=== PATIENT | female | born 1945 | race Two or more races ===

== ENCOUNTER → 2022-03-03 | Outpatient (CLI) | payer OTHER ==
[~2022-03-03] MED LIST: ATOR20TA50 PO; FLEC1TAB PO; LISI20TA28 PO; METF-370 PO; METO25TA93 PO
[2022-03-03 08:10] LABS: Basophils # (auto) 0 10 ^3/uL (0-0.2); Basophils % (auto) 0.8 % (0.0-2.0); Eosinophils # (auto) 0.4 10 ^3/uL (0-0.8); Eosinophils % (auto) 7.2 % (0.0-7.0); Hematocrit 33.2 % (36.0-46.0); Hemoglobin 10.7 g/dL (12.2-16.2); Lymphocytes # (auto) 1.4 10 ^3/uL (0.4-5.4); Lymphocytes % (auto) 25.6 % (10.0-50.0); Mean Corpuscular Hemoglobin 27.7 pg (28.0-32.0); Mean Corpuscular Hgb Conc. 32.3 g/dL (32.0-36.0); Mean Corpuscular Volume 85.7 fL (80.0-100.0); Monocytes # (auto) 0.5 10 ^3/uL (0-1.3); Monocytes % (auto) 8.8 % (0.0-12.0); Neutrophils # (auto) 3.2 10 ^3/uL (1.6-8.6); Neutrophils % (auto) 57.6 % (37.0-80.0); Nucleated Red Blood Cells % 0.1 %; Red Blood Cells 3.87 10^6/uL (4.0-5.20); Red Cell Distribution Width 15.4 % (11.8-14.3); White Blood Cell 5.5 10^3/uL (4.4-10.8)
[2022-03-03 08:36] LABS: Urine Bacteria NONE SEEN /hpf (None Seen); Urine Blood TRACE /uL (Negative); Urine Specific Gravity 1.011 (1.001-1.035); Urine WBC 268 /hpf (0 - 5); Urine WBC Clumps PRESENT /hpf (None Seen)
[2022-03-03 13:09] LABS: Potassium 3.9 mmol/L (3.5-5.1)
[2022-03-03 13:24] LABS: Albumin 3.5 g/dL (3.4-5.0); Bilirubin, Total 0.4 mg/dL (0.2-1.0); Calcium 9.3 mg/dL (8.5-10.1); Total Protein 7.1 g/dL (6.4-8.2)
== END | disposition home or self-care (01) ==
LOC: LAB 07:56
PROVIDERS: ATTEND Nurse Practitioner
DX: I10 Essential (primary) hypertension (principal); E78.5 Hyperlipidemia, unspecified; E11.9 Type 2 diabetes mellitus without complications
CPT/HCPCS: 36415; 80053; 80061; 81001; 82043; 84443; 85025

== ENCOUNTER → 2022-06-03 | Outpatient (CLI) | payer OTHER ==
[2022-06-03 16:02] LABS: Basophils # (auto) 0.1 10 ^3/uL (0-0.2); Basophils % (auto) 0.9 % (0.0-2.0); Eosinophils # (auto) 0.3 10 ^3/uL (0-0.8); Eosinophils % (auto) 5.3 % (0.0-7.0); Hematocrit 34.9 % (36.0-46.0); Hemoglobin 11.7 g/dL (12.2-16.2); Lymphocytes # (auto) 1.3 10 ^3/uL (0.4-5.4); Lymphocytes % (auto) 22.4 % (10.0-50.0); Mean Corpuscular Hemoglobin 28.6 pg (28.0-32.0); Mean Corpuscular Hgb Conc. 33.6 g/dL (32.0-36.0); Mean Corpuscular Volume 85.3 fL (80.0-100.0); Monocytes # (auto) 0.4 10 ^3/uL (0-1.3); Monocytes % (auto) 7.6 % (0.0-12.0); Neutrophils # (auto) 3.7 10 ^3/uL (1.6-8.6); Neutrophils % (auto) 63.8 % (37.0-80.0); Nucleated Red Blood Cells % 0.1 %; Red Cell Distribution Width 14.5 % (11.8-14.3); White Blood Cell 5.8 10^3/uL (4.4-10.8)
[2022-06-03 16:48] LABS: Calcium 9.1 mg/dL (8.5-10.1); Potassium 4.1 mmol/L (3.5-5.1)
[2022-06-03 16:52] LABS: BUN/Creatinine Ratio 18.9; Bilirubin, Total 0.4 mg/dL (0.2-1.0); Total Protein 7.2 g/dL (6.4-8.2)
[2022-06-03 17:02] LABS: Thyroid Stimulating Hormone 0.72 uIU/mL (0.358-3.74)
== END | disposition home or self-care (01) ==
LOC: LAB 15:44
PROVIDERS: ATTEND Internal Medicine
DX: I10 Essential (primary) hypertension (principal); E11.9 Type 2 diabetes mellitus without complications; D64.9 Anemia, unspecified
CPT/HCPCS: 36415; 80053; 82607; 83036; 83540; 83550; 83615; 84443; 85025

== ENCOUNTER → 2022-06-16 | Outpatient (CLI) | payer OTHER ==
[2022-06-16 13:18] LABS: Urine Bacteria NONE SEEN /hpf (None Seen); Urine Blood Negative /uL (Negative); Urine Specific Gravity 1.014 (1.001-1.035); Urine WBC 9 /hpf (0 - 5)
[2022-06-16 13:40] LABS: Albumin 3.3 g/dL (3.4-5.0); Calcium 9.2 mg/dL (8.5-10.1); Potassium 3.6 mmol/L (3.5-5.1)
[2022-06-16 13:42] LABS: Bilirubin, Total 0.5 mg/dL (0.2-1.0); Total Protein 7.1 g/dL (6.4-8.2)
[2022-06-16 13:52] LABS: Basophils # (auto) 0 10 ^3/uL (0-0.2); Basophils % (auto) 0.8 % (0.0-2.0); Eosinophils # (auto) 0.1 10 ^3/uL (0-0.8); Eosinophils % (auto) 2.7 % (0.0-7.0); Hematocrit 31.1 % (36.0-46.0); Hemoglobin 10.5 g/dL (12.2-16.2); Lymphocytes # (auto) 0.8 10 ^3/uL (0.4-5.4); Lymphocytes % (auto) 15.6 % (10.0-50.0); Mean Corpuscular Hemoglobin 28.6 pg (28.0-32.0); Mean Corpuscular Hgb Conc. 33.7 g/dL (32.0-36.0); Mean Corpuscular Volume 84.7 fL (80.0-100.0); Monocytes # (auto) 0.6 10 ^3/uL (0-1.3); Monocytes % (auto) 10.4 % (0.0-12.0); Neutrophils # (auto) 3.8 10 ^3/uL (1.6-8.6); Neutrophils % (auto) 70.5 % (37.0-80.0); Red Blood Cells 3.67 10^6/uL (4.0-5.20); Red Cell Distribution Width 14.1 % (11.8-14.3); White Blood Cell 5.4 10^3/uL (4.4-10.8)
== END | disposition home or self-care (01) ==
LOC: LAB 12:40
PROVIDERS: ATTEND Internal Medicine
DX: R68.83 Chills (without fever) (principal)
CPT/HCPCS: 36415; 80053; 81001; 85025; 87086

== ENCOUNTER → 2022-06-25 | Outpatient (CLI) | payer OTHER ==
[2022-06-25 16:59] LABS: Albumin 3.4 g/dL (3.4-5.0); Calcium 9.2 mg/dL (8.5-10.1); Potassium 4.3 mmol/L (3.5-5.1)
[2022-06-25 17:10] LABS: % Iron Saturation 22.2 % (15-50); BUN/Creatinine Ratio 20.2 (10.0-20.0); Bilirubin, Total 0.4 mg/dL (0.2-1.0); Total Protein 6.8 g/dL (6.4-8.2)
== END | disposition home or self-care (01) ==
LOC: LAB 12:29
PROVIDERS: ATTEND Internal Medicine
DX: I12.9 Hypertensive chronic kidney disease with stage 1 through stage 4 chronic kidney disease, or unspecified chronic kidney disease (principal); N18.30 Chronic kidney disease, stage 3 unspecified
CPT/HCPCS: 36415; 80053; 83540; 83550; 83615

== ENCOUNTER → 2023-01-16 | Outpatient (CLI) | payer OTHER ==
[~2023-01-16] MED LIST changes: -LISI20TA28 PO; +LISI20TA56 PO
[2023-01-16 11:22] LABS: Basophils # (auto) 0.1 10 ^3/uL (0-0.2); Basophils % (auto) 1.2 % (0.0-2.0); Eosinophils # (auto) 0.4 10 ^3/uL (0-0.8); Eosinophils % (auto) 8.2 % (0.0-7.0); Hematocrit 34.1 % (36.0-46.0); Hemoglobin 11.6 g/dL (12.2-16.2); Lymphocytes # (auto) 1.1 10 ^3/uL (0.4-5.4); Lymphocytes % (auto) 24.3 % (10.0-50.0); Mean Corpuscular Hemoglobin 29.9 pg (28.0-32.0); Mean Corpuscular Volume 87.8 fL (80.0-100.0); Monocytes # (auto) 0.4 10 ^3/uL (0-1.3); Neutrophils # (auto) 2.5 10 ^3/uL (1.6-8.6); Neutrophils % (auto) 57.3 % (37.0-80.0); Red Blood Cells 3.88 10^6/uL (4.0-5.20); White Blood Cell 4.3 10^3/uL (4.4-10.8)
[2023-01-16 11:52] LABS: Urine Bacteria NONE SEEN /hpf (None Seen); Urine Blood Negative /uL (Negative); Urine Clarity Clear (Clear); Urine Color Colorless (Yellow); Urine Protein, UAD Negative (Negative); Urine Specific Gravity 1.009 (1.001-1.035); Urine Urobilinogen Normal (Negative); Urine WBC 2 /hpf (0 - 5)
[2023-01-16 11:54] LABS: % Iron Saturation 36.2 % (15-50)
[2023-01-16 11:56] LABS: Alanine Aminotransferase 13 U/L (7-40); Albumin 4.4 g/dL (3.2-4.8); Alkaline Phosphatase 72 U/L (46-116); Anion Gap 5 (5-15); Aspartate Aminotransferase 10 U/L (13-40); BUN/Creatinine Ratio 14.7 (10.0-20.0); Blood Urea Nitrogen 15 mg/dL (9-23); Calcium 9.7 mg/dL (8.5-10.1); Carbon Dioxide 28 mmol/L (20-30); Chloride 109 mmol/L (98-107); Cholesterol 143 mg/dL (< 200); Glucose 117 mg/dL (74-106); LDL Cholesterol 66 mg/dL (< 100); Potassium 4.3 mmol/L (3.5-5.1); Sodium 142 mmol/L (136-145); Triglycerides 115 mg/dL (< 150)
[2023-01-16 11:57] LABS: Bilirubin, Total 0.6 mg/dL (0.2-1.0); HDL Cholesterol 55 mg/dL (40-59); Total Protein 7.2 g/dL (5.7-8.2)
[2023-01-16 11:58] LABS: Free T4 (Free Thyroxine) 0.86 ng/dL (0.89-1.76); Thyroid Stimulating Hormone 0.74 uIU/mL (0.55-4.78)
== END | disposition home or self-care (01) ==
LOC: LAB 10:56
PROVIDERS: ATTEND Internal Medicine
DX: I10 Essential (primary) hypertension (principal); Z86.39 Personal history of other endocrine, nutritional and metabolic disease
CPT/HCPCS: 36415; 80053; 80061; 81001; 82607; 83036; 83540; 83550; 83615; 84439; 84443; 85025

== ENCOUNTER → 2023-11-23 | Outpatient (CLI) | payer OTHER ==
[2023-11-23 14:15] LABS: Basophils # (auto) 0 10 ^3/uL (0-0.2); Eosinophils # (auto) 0.2 10 ^3/uL (0-0.8); Eosinophils % (auto) 4.8 % (0.0-7.0); Hematocrit 32.4 % (36.0-46.0); Lymphocytes % (auto) 19.6 % (10.0-50.0); Mean Corpuscular Hemoglobin 29.3 pg (28.0-32.0); Mean Corpuscular Volume 86.2 fL (80.0-100.0); Monocytes # (auto) 0.4 10 ^3/uL (0-1.3); Monocytes % (auto) 7.7 % (0.0-12.0); Neutrophils # (auto) 3.4 10 ^3/uL (1.6-8.6); Neutrophils % (auto) 66.9 % (37.0-80.0); Platelet Count (auto) 210 10^3/uL (140-450); Red Blood Cells 3.76 10^6/uL (4.0-5.20); Red Cell Distribution Width 14.3 % (11.8-14.3)
[2023-11-23 14:39] LABS: Urine Bacteria FEW /hpf (None Seen); Urine Blood Negative /uL (Negative); Urine Clarity Clear (Clear); Urine Color Light-Yellow (Yellow); Urine Protein, UAD TRACE (Negative); Urine Specific Gravity 1.016 (1.001-1.035); Urine Urobilinogen Normal (Negative); Urine WBC 2 /hpf (0 - 5); Urine pH 5.5 (5.0-9.0)
[2023-11-23 14:50] LABS: Alanine Aminotransferase 12 U/L (7-40); Albumin 4.4 g/dL (3.2-4.8); Alkaline Phosphatase 99 U/L (46-116); Anion Gap 7 (5-15); Aspartate Aminotransferase 12 U/L (13-40); BUN/Creatinine Ratio 13.2 (10.0-20.0); Bilirubin, Total 0.6 mg/dL (0.2-1.0); Blood Urea Nitrogen 19 mg/dL (9-23); Calcium 9.9 mg/dL (8.7-10.4); Carbon Dioxide 23 mmol/L (20-30); Chloride 110 mmol/L (98-107); Cholesterol 127 mg/dL (< 200); Glucose 113 mg/dL (74-106); HDL Cholesterol 49 mg/dL (40-59); LDL Cholesterol 51 mg/dL (< 100); Potassium 4.1 mmol/L (3.5-5.1); Sodium 140 mmol/L (136-145); Total Protein 7.2 g/dL (5.7-8.2); Triglycerides 118 mg/dL (< 150)
[2023-11-23 15:03] LABS: Creatinine, Urine 100.77 mg/dL (30.0-125.0)
[2023-11-23 15:14] LABS: Free T4 (Free Thyroxine) 0.96 ng/dL (0.89-1.76)
[2023-11-23 15:51] LABS: Erythrocyte Sedimentation Rate 15 mm/hr (0-20)
== END | disposition home or self-care (01) ==
LOC: LAB 13:52
PROVIDERS: ATTEND Internal Medicine
DX: I10 Essential (primary) hypertension (principal); D64.9 Anemia, unspecified
CPT/HCPCS: 36415; 80053; 80061; 81001; 82043; 82570; 82607; 83540; 84439; 84443; 85025; 85652

== ENCOUNTER 2024-01-28 14:05 | Inpatient (IN) | payer OTHER ==
[~2024-01-28] VITALS: Ht 167.6 cm; Wt 75.5 kg
[2024-01-28 14:40] LABS: Basophils # (auto) 0 10 ^3/uL (0-0.2); Basophils % (auto) 0.6 % (0.0-2.0); Eosinophils # (auto) 0.2 10 ^3/uL (0-0.8); Hematocrit 32.3 % (36.0-46.0); Lymphocytes % (auto) 17.2 % (10.0-50.0); Mean Corpuscular Hemoglobin 30.3 pg (28.0-32.0); Mean Corpuscular Hgb Conc. 33.9 g/dL (32.0-36.0); Mean Corpuscular Volume 89.1 fL (80.0-100.0); Monocytes # (auto) 0.4 10 ^3/uL (0-1.3); Monocytes % (auto) 7.5 % (0.0-12.0); Neutrophils # (auto) 4.1 10 ^3/uL (1.6-8.6); Neutrophils % (auto) 70.7 % (37.0-80.0); Platelet Count (auto) 209 10^3/uL (140-450); Red Blood Cells 3.63 10^6/uL (4.0-5.20); Red Cell Distribution Width 14.8 % (11.8-14.3); White Blood Cell 5.7 10^3/uL (4.4-10.8)
[2024-01-28 14:59] LABS: Alanine Aminotransferase 30 U/L (7-40); Albumin 4.1 g/dL (3.2-4.8); Alkaline Phosphatase 118 U/L (46-116); Anion Gap 11 (5-15); Aspartate Aminotransferase 13 U/L (13-40); Bilirubin, Total 0.4 mg/dL (0.2-1.0); Blood Urea Nitrogen 22 mg/dL (9-23); Calcium 9.6 mg/dL (8.7-10.4); Carbon Dioxide 20 mmol/L (20-31); Chloride 108 mmol/L (98-107); Glucose 313 mg/dL (74-106); Potassium 4.3 mmol/L (3.5-5.1); Sodium 139 mmol/L (136-145); Total Protein 6.8 g/dL (5.7-8.2)
[2024-01-28] MEDS: dilTIAZem 25 MG/5 ML VIAL IV ONE (15:21)
[2024-01-28] MEDS: AMIODARONE BOLUS KIT 100 ML IV ONE (16:46)
[2024-01-28] MEDS: AMIODARONE 450mg/250ml AE 250 ML IV SCH (17:11)
[2024-01-28] MEDS ORDERED: DOCUSATE SOD 100 MG CAP PO PRN (17:15)
[2024-01-28] MEDS ORDERED: NITROGLYCERIN 0.4 MG SL TAB SL PRN (17:15)
[2024-01-28] MEDS ORDERED: HYDROcodone-ACET 5/325MG TAB PO PRN (17:15)
[2024-01-28] MEDS ORDERED: DEXTROSE (50%) 50ML SYRG IV PRN (17:15)
[2024-01-28] MEDS ORDERED: ONDANSETRON HCL 4 MG/2 ML VIAL IV PRN (17:15)
[2024-01-28] MEDS ORDERED: MORPHINE SULFATE INJ 2 MG/ml SYRG IV PRN (17:15)
[2024-01-28] MEDS ORDERED: ACETAMINOPHEN 325 MG TAB PO PRN (17:15)
[2024-01-28] MEDS ORDERED: MET25T PO (17:24)
[2024-01-28] MEDS ORDERED: ASPI1TAB20 PO (17:24)
[2024-01-28] MEDS ORDERED: TRAZ-227 PO (17:24)
[2024-01-28] MEDS ORDERED: traZODone HCL 50 MG TAB PO PRN (17:30)
[2024-01-28] MEDS: InsuLIN REG 1unit/0.01ml Soln (100units/ml) SC SCH (21:47)
[2024-01-28] MEDS: ACCU-CHEK COMFORT CURVE STRIP VI SCH (21:49)
[2024-01-28 22:30] VITALS: BP 146/96; PULSE 103; RESP 20; TEMP 98; O2SAT 98
[2024-01-28] MEDS: METOPROLOL TARTRATE 25 MG TAB PO SCH (22:44)
[2024-01-28] MEDS: FLECAINIDE ACETATE 50 MG TAB PO SCH (22:44)
[2024-01-29] VITALS (8 sets, daily range): BP systolic 117–138; BP diastolic 49–93; PULSE 61–122; RESP 18–20; TEMP 97.9–98.5; O2SAT 94–98
[2024-01-29] MEDS: AMIODARONE 450mg/250ml AE 250 ML IV SCH (00:27)
[2024-01-29] MEDS ORDERED: ASCO500T11 PO (01:00)
[2024-01-29] MEDS ORDERED: CHOL400C7 PO (01:00)
[2024-01-29 06:13] LABS: Basophils # (auto) 0 10 ^3/uL (0-0.2); Basophils % (auto) 0.5 % (0.0-2.0); Eosinophils # (auto) 0.2 10 ^3/uL (0-0.8); Hematocrit 32.8 % (36.0-46.0); Hemoglobin 11.4 g/dL (12.2-16.2); Lymphocytes # (auto) 0.9 10 ^3/uL (0.4-5.4); Lymphocytes % (auto) 11.8 % (10.0-50.0); Mean Corpuscular Hemoglobin 30.6 pg (28.0-32.0); Mean Corpuscular Hgb Conc. 34.9 g/dL (32.0-36.0); Mean Corpuscular Volume 87.5 fL (80.0-100.0); Monocytes # (auto) 0.5 10 ^3/uL (0-1.3); Monocytes % (auto) 7.2 % (0.0-12.0); Neutrophils # (auto) 5.8 10 ^3/uL (1.6-8.6); Neutrophils % (auto) 78.5 % (37.0-80.0); Nucleated Red Blood Cells % 0.1 %; Platelet Count (auto) 215 10^3/uL (140-450); Red Blood Cells 3.75 10^6/uL (4.0-5.20); Red Cell Distribution Width 14.3 % (11.8-14.3); White Blood Cell 7.4 10^3/uL (4.4-10.8)
[2024-01-29] MEDS: InsuLIN REG 1unit/0.01ml Soln (100units/ml) SC SCH (06:27)
[2024-01-29 07:38] LABS: Alanine Aminotransferase 25 U/L (7-40); Alkaline Phosphatase 114 U/L (46-116); Anion Gap 12 (5-15); Aspartate Aminotransferase 11 U/L (13-40); BUN/Creatinine Ratio 12.3 (10.0-20.0); Bilirubin, Total 0.6 mg/dL (0.2-1.0); Blood Urea Nitrogen 23 mg/dL (9-23); Calcium 9.5 mg/dL (8.7-10.4); Carbon Dioxide 20 mmol/L (20-31); Chloride 108 mmol/L (98-107); Glucose 173 mg/dL (74-106); Potassium 4.2 mmol/L (3.5-5.1); Sodium 140 mmol/L (136-145); Total Protein 6.7 g/dL (5.7-8.2)
[2024-01-29 08:06] LABS: INR 1.11 (0.9-1.15); Partial Thromboplastin Time 25.9 SEC (24.5-34.5); Prothrombin Time 11.7 sec (9.3-11.8)
[2024-01-29 09:22] LABS: Magnesium 1.7 mg/dL (1.6-2.6)
[2024-01-29 09:23] LABS: Phosphorus 3.9 mg/dL (2.4-5.1)
[2024-01-29] MEDS: ASPirin-EC 81 mg tab PO SCH (10:36)
[2024-01-29] MEDS: LISINOPRIL 20 MG TAB PO SCH (10:37)
[2024-01-29 11:52] LABS: Urine Bacteria None Seen /hpf (None Seen)
[2024-01-29 12:13] LABS: Amphetamine Screen, Urine Neg (NEGATIVE); Barbiturate Scree,Urine Neg (NEGATIVE); Benzodiazephine Screen, Urine Neg (NEGATIVE); Cannabinoid Screen, Urine Neg (NEGATIVE); Cocaine Screen, Urine Neg (NEGATIVE); Opiate Scree,Urine Neg (NEGATIVE); Phencyclidine Screen, Urine Neg (NEGATIVE)
[2024-01-29 12:39] LABS: Urine Blood Negative /uL (Negative); Urine Clarity Clear (Clear); Urine Color Light-Yellow (Yellow); Urine Protein, UAD TRACE (Negative); Urine Specific Gravity 1.019 (1.001-1.035); Urine Urobilinogen Normal (Negative)
[2024-01-29] MEDS: MAGNESIUM SULFATE 1GM/100ML 100 ML IV ONE (12:54)
[2024-01-29 13:27] LABS: Urine WBC 10 /hpf (0 - 5)
[2024-01-29] MEDS: APIXABAN 2.5 MG TAB PO SCH (21:18)
[2024-01-29] MEDS: ATORVASTATIN 20 MG TAB PO SCH (21:18)
[2024-01-30] VITALS (8 sets, daily range): BP systolic 113–133; BP diastolic 77–92; PULSE 106–131; RESP 14–18; TEMP 97.5–98.7; O2SAT 90–97
[2024-01-30 05:52] LABS: Basophils # (auto) 0 10 ^3/uL (0-0.2); Basophils % (auto) 0.7 % (0.0-2.0); Eosinophils # (auto) 0.2 10 ^3/uL (0-0.8); Hematocrit 33.9 % (36.0-46.0); Hemoglobin 11.4 g/dL (12.2-16.2); Lymphocytes # (auto) 1.4 10 ^3/uL (0.4-5.4); Lymphocytes % (auto) 21.1 % (10.0-50.0); Mean Corpuscular Hemoglobin 29.7 pg (28.0-32.0); Mean Corpuscular Hgb Conc. 33.7 g/dL (32.0-36.0); Mean Corpuscular Volume 88.2 fL (80.0-100.0); Monocytes # (auto) 0.7 10 ^3/uL (0-1.3); Monocytes % (auto) 11.4 % (0.0-12.0); Neutrophils # (auto) 4.1 10 ^3/uL (1.6-8.6); Neutrophils % (auto) 63.8 % (37.0-80.0); Nucleated Red Blood Cells % 0.1 %; Platelet Count (auto) 209 10^3/uL (140-450); Red Blood Cells 3.84 10^6/uL (4.0-5.20); Red Cell Distribution Width 14.6 % (11.8-14.3); White Blood Cell 6.4 10^3/uL (4.4-10.8)
[2024-01-30 06:00] LABS: Anion Gap 9 (5-15); Calcium 9.5 mg/dL (8.7-10.4); Carbon Dioxide 21 mmol/L (20-31); Chloride 109 mmol/L (98-107); Sodium 139 mmol/L (136-145)
[2024-01-30 06:06] LABS: BUN/Creatinine Ratio 11.4 (10.0-20.0); Blood Urea Nitrogen 20 mg/dL (9-23); Glucose 101 mg/dL (74-106)
[2024-01-30] MEDS: SPIRONOLACTONE 25 MG TAB PO ONE (17:36)
[2024-01-30] MEDS: METOPROLOL TARTRATE 25 MG TAB PO SCH (21:45)
[2024-01-30] MEDS ORDERED: METOPROLOL TARTRATE 25 MG TAB PO SCH (22:00)
[2024-01-30] MEDS: DOCUSATE CALCIUM 240 MG CAP PO ONE (22:08)
[2024-01-30] MEDS: traZODone HCL 50 MG TAB PO SCH (22:10)
[2024-01-30] MEDS: ATORVASTATIN 20 MG TAB PO SCH (22:19)
[2024-01-31] VITALS (8 sets, daily range): BP systolic 94–124; BP diastolic 54–77; PULSE 109–137; RESP 16–20; TEMP 97.3–98.1; O2SAT 94–100
[2024-01-31] MEDS: EMPAGLIFLOZIN 10 MG TAB PO SCH (09:07)
[2024-01-31] MEDS: LACTULOSE 20Gm/30ML SOLN PO SCH (09:35)
[2024-01-31] MEDS: SPIRONOLACTONE 25 MG TAB PO SCH (11:41)
[2024-02-01] VITALS (8 sets, daily range): BP systolic 90–149; BP diastolic 58–73; PULSE 61–135; RESP 16–18; TEMP 97.4–98.2; O2SAT 95–100
[2024-02-01 07:03] LABS: Basophils # (auto) 0.1 10 ^3/uL (0-0.2); Basophils % (auto) 1.1 % (0.0-2.0); Eosinophils # (auto) 0.3 10 ^3/uL (0-0.8); Eosinophils % (auto) 6.5 % (0.0-7.0); Hemoglobin 10.6 g/dL (12.2-16.2); Lymphocytes # (auto) 1.3 10 ^3/uL (0.4-5.4); Lymphocytes % (auto) 23.3 % (10.0-50.0); Mean Corpuscular Hemoglobin 30.2 pg (28.0-32.0); Mean Corpuscular Hgb Conc. 34.2 g/dL (32.0-36.0); Mean Corpuscular Volume 88.2 fL (80.0-100.0); Monocytes # (auto) 0.6 10 ^3/uL (0-1.3); Neutrophils # (auto) 3.1 10 ^3/uL (1.6-8.6); Neutrophils % (auto) 57.1 % (37.0-80.0); Nucleated Red Blood Cells % 0.1 %; Platelet Count (auto) 208 10^3/uL (140-450); Red Blood Cells 3.51 10^6/uL (4.0-5.20); White Blood Cell 5.4 10^3/uL (4.4-10.8)
[2024-02-01 07:08] LABS: Chloride 110 mmol/L (98-107); Potassium 4.5 mmol/L (3.5-5.1); Sodium 142 mmol/L (136-145)
[2024-02-01 07:09] LABS: Anion Gap 8 (5-15); Carbon Dioxide 24 mmol/L (20-31)
[2024-02-01 07:14] LABS: BUN/Creatinine Ratio 12.1 (10.0-20.0); Blood Urea Nitrogen 28 mg/dL (9-23); Glucose 87 mg/dL (74-106)
[2024-02-01] MEDS: METOPROLOL SUCCINATE XL 50 MG TAB PO SCH (09:55)
[2024-02-01] MEDS: hydrALAZINE HCL 10 MG TAB PO SCH (14:08)
[2024-02-01] MEDS ORDERED: ADENOSINE 63 MG in GIVE UN-DILUTED 0 ML IV STA (14:19)
[2024-02-01] MEDS: AMIODARONE 450mg/250ml AE 250 ML IV SCH ×2 (16:15→23:21)
[2024-02-01] MEDS: AMIODARONE BOLUS KIT 100 ML IV ONE (16:20)
[2024-02-01] MEDS: ISOSORBIDE DINITRATE 10 MG TAB PO SCH (18:06)
[2024-02-01] MEDS ORDERED: SACUBITRIL-VALSARTAN 24mg/26mg TAB PO SCH (22:00)
[2024-02-02] VITALS (9 sets, daily range): BP systolic 102–128; BP diastolic 64–73; PULSE 75–125; RESP 17–20; TEMP 97.4–98.3; O2SAT 95–98
[2024-02-02 09:26] LABS: Chloride 106 mmol/L (98-107); Potassium 4.3 mmol/L (3.5-5.1); Sodium 138 mmol/L (136-145)
[2024-02-02 09:27] LABS: Anion Gap 7 (5-15); Calcium 9.8 mg/dL (8.7-10.4); Carbon Dioxide 25 mmol/L (20-31)
[2024-02-02 09:32] LABS: BUN/Creatinine Ratio 13.3 (10.0-20.0); Blood Urea Nitrogen 28 mg/dL (9-23); Glucose 159 mg/dL (74-106)
[2024-02-02] MEDS: AMIODARONE HCL 200 MG TAB PO SCH (11:14)
[2024-02-02] MEDS: ADENOSINE 61 MG in GIVE UN-DILUTED 0 ML IV STA (14:23)
[2024-02-02] MEDS ORDERED: EMPA1TAB PO (16:41)
[2024-02-02] MEDS ORDERED: ISOS5TAB PO (16:41)
[2024-02-02] MEDS ORDERED: AMIO200T33 PO (16:41)
[2024-02-02] MEDS ORDERED: HYDR-5139 PO (16:41)
[2024-02-02] MEDS ORDERED: METO1TAB9 PO (16:41)
== END 2024-02-02 23:25 | disposition home or self-care (01) | DRG 291 ==
LOC: ER 14:05 → TELE 17:12 → TELE-WESTW 22:08
PROVIDERS: ADMIT Internal Medicine; ATTEND Internal Medicine
DX: I13.0 Hypertensive heart and chronic kidney disease with heart failure and stage 1 through stage 4 chronic kidney disease, or unspecified chronic kidney disease (principal); I50.23 Acute on chronic systolic (congestive) heart failure; J96.01 Acute respiratory failure with hypoxia; I48.20 Chronic atrial fibrillation, unspecified; J84.9 Interstitial pulmonary disease, unspecified; N17.9 Acute kidney failure, unspecified; I42.9 Cardiomyopathy, unspecified; E11.22 Type 2 diabetes mellitus with diabetic chronic kidney disease; E78.5 Hyperlipidemia, unspecified; E11.65 Type 2 diabetes mellitus with hyperglycemia; E03.9 Hypothyroidism, unspecified; Z96.641 Presence of right artificial hip joint; N18.30 Chronic kidney disease, stage 3 unspecified; K59.00 Constipation, unspecified; G47.00 Insomnia, unspecified; Z90.710 Acquired absence of both cervix and uterus; Z83.3 Family history of diabetes mellitus; Z87.891 Personal history of nicotine dependence; Z82.5 Family history of asthma and other chronic lower respiratory diseases
CPT/HCPCS: 36415; 71045; 78452; 80048; 80053; 80061; 80307; 81001; 82306; 82607; 82962; 83036; 83605; 83735; 84100; 84443; 84484; 85025; 85610; 85730; 93005; 93017; 93306; 96365; 96372; 99291; G0378; J0153; J1815

== ENCOUNTER → 2024-02-16 | Outpatient (CLI) | payer OTHER ==
[~2024-02-16] MED LIST changes: +AMIO200T33 PO; +ASCO500T11 PO; +ASPI1TAB20 PO; +EMPA1TAB PO; -FLEC1TAB PO; +HYDR-5139 PO; +ISOS5TAB PO; -LISI20TA56 PO; -METF-370 PO; +METO1TAB9 PO; -METO25TA93 PO; +TRAZ-227 PO
[2024-02-16 13:24] LABS: Basophils # (auto) 0.1 10 ^3/uL (0-0.2); Basophils % (auto) 1.2 % (0.0-2.0); Eosinophils # (auto) 0.2 10 ^3/uL (0-0.8); Eosinophils % (auto) 3.7 % (0.0-7.0); Hematocrit 36.7 % (36.0-46.0); Hemoglobin 12.4 g/dL (12.2-16.2); Lymphocytes % (auto) 20.3 % (10.0-50.0); Mean Corpuscular Hemoglobin 29.9 pg (28.0-32.0); Mean Corpuscular Hgb Conc. 33.7 g/dL (32.0-36.0); Mean Corpuscular Volume 88.7 fL (80.0-100.0); Monocytes # (auto) 0.5 10 ^3/uL (0-1.3); Monocytes % (auto) 9.7 % (0.0-12.0); Neutrophils # (auto) 3.4 10 ^3/uL (1.6-8.6); Neutrophils % (auto) 65.1 % (37.0-80.0); Nucleated Red Blood Cells % 0.1 %; Platelet Count (auto) 239 10^3/uL (140-450); Red Blood Cells 4.14 10^6/uL (4.0-5.20); Red Cell Distribution Width 14.9 % (11.8-14.3); White Blood Cell 5.2 10^3/uL (4.4-10.8)
[2024-02-16 14:00] LABS: Alanine Aminotransferase 28 U/L (7-40); Albumin 4.6 g/dL (3.2-4.8); Alkaline Phosphatase 108 U/L (46-116); Anion Gap 5 (5-15); Aspartate Aminotransferase 11 U/L (13-40); Bilirubin, Total 0.5 mg/dL (0.2-1.0); Blood Urea Nitrogen 27 mg/dL (9-23); Calcium 10.1 mg/dL (8.7-10.4); Carbon Dioxide 27 mmol/L (20-31); Chloride 108 mmol/L (98-107); Glucose 114 mg/dL (74-106); Potassium 4.7 mmol/L (3.5-5.1); Sodium 140 mmol/L (136-145); Total Protein 7.6 g/dL (5.7-8.2)
[2024-02-16 14:48] LABS: Uric Acid 5.9 mg/dL (3.1-7.8)
== END | disposition home or self-care (01) ==
LOC: LAB 12:44
PROVIDERS: ATTEND Student in an Organized Health Care Education/Training Program
DX: I13.0 Hypertensive heart and chronic kidney disease with heart failure and stage 1 through stage 4 chronic kidney disease, or unspecified chronic kidney disease (principal); N18.31 Chronic kidney disease, stage 3a; I50.9 Heart failure, unspecified; E11.22 Type 2 diabetes mellitus with diabetic chronic kidney disease
CPT/HCPCS: 36415; 80053; 80184; 83540; 83970; 84439; 84550; 85025

== ENCOUNTER → 2024-05-30 | Outpatient (CLI) | payer OTHER ==
[2024-05-30 12:14] LABS: Free T3 4.24 pg/mL (2.3-4.2); Free T4 (Free Thyroxine) 1.45 ng/dL (0.89-1.76)
[2024-05-31 08:07] LABS: Thyroid Peroxidase (TPO) Ab 552 IU/mL (0-34)
[2024-05-31 11:07] LABS: Thyrotropin Receptor Antibody <1.10 IU/L (0.00-1.75)
== END | disposition home or self-care (01) ==
LOC: LAB 11:25
PROVIDERS: ATTEND Internal Medicine
DX: E05.90 Thyrotoxicosis, unspecified without thyrotoxic crisis or storm (principal)
CPT/HCPCS: 36415; 84439; 84443; 84481; 86376

== ENCOUNTER → 2024-07-14 | Outpatient (CLI) | payer OTHER ==
[2024-07-14 12:39] LABS: Erythrocyte Sedimentation Rate 13 mm/hr (0-20)
== END | disposition home or self-care (01) ==
LOC: LAB 11:33
PROVIDERS: ATTEND Internal Medicine Endocrinology, Diabetes & Metabolism
DX: E05.90 Thyrotoxicosis, unspecified without thyrotoxic crisis or storm (principal)
CPT/HCPCS: 36415; 84439; 84443; 84445; 85652; 86141

== ENCOUNTER 2024-12-16 15:55 | Outpatient (CLI) | payer OTHER ==
[2024-12-16 16:13] LABS: Hematocrit 34.5 % (36.0-46.0); Hemoglobin 11.9 g/dL (12.2-16.2); Mean Corpuscular Hemoglobin 29.7 pg (28.0-32.0); Mean Corpuscular Volume 86.3 fL (80.0-100.0); Nucleated Red Blood Cells % 0.1 %
[2024-12-16 16:36] LABS: Alanine Aminotransferase 14 U/L (7-40); Albumin 4.1 g/dL (3.2-4.8); Alkaline Phosphatase 75 U/L (46-116); Anion Gap 8 (5-15); BUN/Creatinine Ratio 14.8 (10.0-20.0); Bilirubin, Total 0.6 mg/dL (0.2-1.0); Calcium 9.4 mg/dL (8.7-10.4); Carbon Dioxide 25 mmol/L (20-31); Chloride 107 mmol/L (98-107); Sodium 140 mmol/L (136-145); Total Protein 6.8 g/dL (5.7-8.2)
[2024-12-16 16:37] LABS: Blood Urea Nitrogen 33 mg/dL (9-23); Glucose 141 mg/dL (74-106); Potassium 5.2 mmol/L (3.5-5.1)
== END 2024-12-16 17:00 | disposition home or self-care (01) ==
LOC: LAB 15:55
PROVIDERS: ATTEND Internal Medicine
DX: E11.42 Type 2 diabetes mellitus with diabetic polyneuropathy (principal); I10 Essential (primary) hypertension; E78.5 Hyperlipidemia, unspecified; R19.7 Diarrhea, unspecified
CPT/HCPCS: 36415; 80053; 84439; 84443; 85025; 85652; 86141

== ENCOUNTER 2024-12-28 10:34 | Outpatient (CLI) | payer OTHER ==
[2024-12-28 11:15] LABS: Calcium 8.8 mg/dL (8.7-10.4); Potassium 4.1 mmol/L (3.5-5.1); Sodium 144 mmol/L (136-145)
[2024-12-28 11:16] LABS: Anion Gap 9 (5-15); Carbon Dioxide 25 mmol/L (20-31)
[2024-12-28 11:21] LABS: BUN/Creatinine Ratio 16.8 (10.0-20.0)
[2024-12-28 11:22] LABS: Blood Urea Nitrogen 26 mg/dL (9-23); Chloride 110 mmol/L (98-107); Glucose 120 mg/dL (74-106)
== END 2024-12-28 17:00 | disposition home or self-care (01) ==
LOC: LAB 10:34
PROVIDERS: ATTEND Internal Medicine
DX: N18.4 Chronic kidney disease, stage 4 (severe) (principal)
CPT/HCPCS: 36415; 80048

== ENCOUNTER 2025-02-05 04:54 | Emergency (ER) | payer OTHER ==
[~2025-02-05] VITALS: Ht 167.6 cm; Wt 59.7 kg
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
[2025-02-05 06:59] VITALS: BP 180/65; PULSE 63; RESP 18; TEMP 98; O2SAT 98
--- NOTE | 2025-02-06 11:53 | ECG ---
[facility] Test Date: 2025-02-05 Test Time: 05:06:21 Pat Name: RADHA CHACON Department: Room: Gender: F Distribution Associate: : 1945 Requested By: EMERGENCY EMERGENCY Order Number: [id number] Reading MD: Kaiser Macias Measurements Intervals [place] Rate: 64 P: 64 WI: 168 QRS: 72 QRSD: 91 T: 68 QT: 402 QTc: 415 Interpretive Statements Sinus rhythm Atrial premature complexes Electronically Signed On 02-07-2025 13:32:13 PST by Kaiser Macias Please click the below link to view image of tracing.
== END 2025-02-05 08:00 | disposition home or self-care (01) ==
LOC: ER 04:54
DX: I12.9 Hypertensive chronic kidney disease with stage 1 through stage 4 chronic kidney disease, or unspecified chronic kidney disease (principal); E11.22 Type 2 diabetes mellitus with diabetic chronic kidney disease; N18.9 Chronic kidney disease, unspecified; F10.90 Alcohol use, unspecified, uncomplicated; E78.5 Hyperlipidemia, unspecified; I48.91 Unspecified atrial fibrillation; Z79.899 Other long term (current) drug therapy; Z90.710 Acquired absence of both cervix and uterus; Z79.82 Long term (current) use of aspirin; Z79.84 Long term (current) use of oral hypoglycemic drugs
CPT/HCPCS: 93005

== ENCOUNTER 2025-02-06 11:56 | Outpatient (CLI) | payer OTHER ==
[2025-02-06 13:32] LABS: Hematocrit 32.8 % (36.0-46.0); Hemoglobin 11.2 g/dL (12.2-16.2); Mean Corpuscular Hemoglobin 30.0 pg (28.0-32.0); Mean Corpuscular Volume 87.8 fL (80.0-100.0); Nucleated Red Blood Cells % 0.0 %
[2025-02-06 13:56] LABS: Alanine Aminotransferase 19 U/L (7-40); Alkaline Phosphatase 105 U/L (46-116); Anion Gap 10 (5-15); Calcium 9.4 mg/dL (8.7-10.4); Carbon Dioxide 24 mmol/L (20-31); Potassium 4.4 mmol/L (3.5-5.1); Sodium 142 mmol/L (136-145)
[2025-02-06 13:57] LABS: BUN/Creatinine Ratio 17.5 (10.0-20.0); Triglycerides 110 mg/dL (< 150)
[2025-02-06 13:58] LABS: Blood Urea Nitrogen 24 mg/dL (9-23); Chloride 108 mmol/L (98-107); Glucose 109 mg/dL (74-106); Protein, Urine 11.5 mg/dL (1-14); Total Protein 7.2 g/dL (5.7-8.2)
[2025-02-06 13:59] LABS: Albumin 4.3 g/dL (3.2-4.8); Cholesterol 137 mg/dL (< 200); HDL Cholesterol 53 mg/dL (40-59)
[2025-02-06 14:00] LABS: Bilirubin, Total 0.7 mg/dL (0.2-1.0)
[2025-02-06 14:03] LABS: Free T4 (Free Thyroxine) 1.01 ng/dL (0.89-1.76); Urine Protein, UAD Negative (Negative)
== END 2025-02-06 17:00 | disposition home or self-care (01) ==
LOC: LAB 11:56
PROVIDERS: ATTEND Internal Medicine
DX: I12.9 Hypertensive chronic kidney disease with stage 1 through stage 4 chronic kidney disease, or unspecified chronic kidney disease (principal); E11.22 Type 2 diabetes mellitus with diabetic chronic kidney disease; N18.30 Chronic kidney disease, stage 3 unspecified
CPT/HCPCS: 36415; 80053; 80061; 81001; 82043; 82570; 82607; 83036; 83970; 84156; 84439; 84443; 85025; 85652

== ENCOUNTER 2025-02-19 09:36 | Inpatient (IN) | payer OTHER ==
[2025-02-19] VITALS (7 sets, daily range): BP systolic 116–156; BP diastolic 59–86; PULSE 78–111; RESP 16–19; TEMP 98–98.3; O2SAT 96–100
[~2025-02-19] VITALS: Ht 167.6 cm; Wt 59.7 kg
[2025-02-19 10:26] LABS: Hematocrit 36.4 % (36.0-46.0); Hemoglobin 12.2 g/dL (12.2-16.2); Mean Corpuscular Hemoglobin 29.6 pg (28.0-32.0); Mean Corpuscular Volume 88.1 fL (80.0-100.0); Nucleated Red Blood Cells % 0.0 %
[2025-02-19 10:37] LABS: Potassium 4.1 mmol/L (3.5-5.1); Sodium 144 mmol/L (136-145)
[2025-02-19 10:38] LABS: Anion Gap 11 (5-15); Carbon Dioxide 25 mmol/L (20-31)
[2025-02-19 10:39] LABS: Calcium 9.7 mg/dL (8.7-10.4)
[2025-02-19 10:44] LABS: BUN/Creatinine Ratio 10.8 (10.0-20.0); Blood Urea Nitrogen 15 mg/dL (9-23)
[2025-02-19 10:48] LABS: Chloride 108 mmol/L (98-107); Glucose 120 mg/dL (74-106)
--- NOTE | 2025-02-19 11:04 | ED.PDOC ---
History of Present Illness HPI Comments 79-year-old female presents to the ER with prior medical history of AFib, CKF , diabetes, high lipids, hypertension: Surgical history of hysterectomy in the chief complaint of hypotension. Patient reports on taking her blood pressure this morning at home, for which the patient had a with a pressure of 172/96, and felt off, and had nausea, palpitations, and "shakiness". Patient immediately came to the ER for which had a blood pressure of 155/79. Patient notes on having similar symptoms in the past Denies any other symptoms at this time. Denies chills, fever, /V/D, SOB, CP. No other associated symptoms, modifiers, recent injuries or sick contacts present at this time. Chief Complaint: High Blood Pressure Time Seen by MD: 10:30 Primary Care Provider: BELINDA Reviewed Notes: Nurses Notes, Medications, Allergies Allergies: Coded Allergies: NO KNOWN ALLERGIES (Unverified , 11/05/21) Home Meds Active Scripts Metoprolol Succinate (Metoprolol Succinate Er) 100 Mg Tab, 100 MG PO BID for 30 Days, #60 TAB Prov:RUSTAM PEARSON RESIDENT 02/02/24 Empagliflozin (Jardiance) 10 Mg Tab, 10 MG PO DAILY for 30 Days, #30 TAB Prov:RUSTAM PEARSON RESIDENT 02/02/24 Isosorbide Dinitrate (Isosorbide Dinitrate) 5 Mg Tab, 5 MG PO TID for 30 Days, #90 TAB Prov:RUSTAM PEARSON RESIDENT 02/02/24 Hydralazine HCl (Hydralazine Hydrochloride) 10 Mg Tab, 10 MG PO Q8HR for 30 Days, #90 TAB Prov:RUSTAM PEARSON RESIDENT 02/02/24 Amiodarone Hcl (Amiodarone Hcl) 200 Mg Tab, 200 MG PO BID for 30 Days, #60 TAB Prov:RUSTAM PEARSON RESIDENT 02/02/24 Reported Medications Ascorbic Acid (VITAMIN C TABLET) 500 Mg Tb, 1 TAB PO DAILY, #30 TAB 3 Refills 01/29/24 Trazodone Hcl (Trazodone Hcl) 50 Mg Tab, 1 TAB PO HSPRN PRN 01/28/24 Aspirin (Aspir-81) 81 Mg Tab, 1 TAB PO DAILY, #30 TAB 5 Refills 01/28/24 Atorvastatin Calcium (ATORVASTATIN CALCIUM) 20 Mg Tab, 1 TAB PO DAILY, #30 TAB 5 Refills 11/07/21 Information Source: Patient Mode of Arrival: Ambulatory Severity: Moderate Timing: Minutes Duration: Since onset, Minutes Prehospital treatment: None Past Medical History PAST MEDICAL HISTORY: AFIB, CKF, DM, High Lipids, HTN Surgical History: Hysterectomy SPA RECEPTIONIST History: No Pertinent SPA RECEPTIONIST History Family History Family History: Reviewed,noncontributory to illness, Unknown Social History Smoker: Unknown Alcohol: Unknown Drugs: Unknown Lives In: Home Constitutional: denies: chills, diaphoresis, fatigue, fever, malaise, sweats, weakness, others EENTM: denies: blurred vision, double vision, ear bleeding, ear discharge, ear drainage, ear pain, ear ringing, eye pain, eye redness, hearing loss, mouth pain, mouth swelling, nasal discharge, nose bleeding, nose congestion, nose pain, photophobia, tearing, throat pain, throat swelling, voice changes, others Respiratory: denies: cough, hemoptysis, orthopnea, SOB at rest, shortness of breath, SOB with excertion, stridor, wheezing, others Cardiovascular: reports: palpitations, others (Hypertension); denies: chest pain, dizzy spells, diaphoresis, Dyspnea on exertion, edema, irregular heart beat, left arm pain, lightheadedness, PND, syncope Gastrointestinal: reports: nausea; denies: abdomen distended, abdominal pain, blood streaked bowels, constipated, diarrhea, dysphagia, difficulty swallowing, hematemesis, melena, poor appetite, poor fluid intake, rectal bleeding, rectal pain, vomiting, others Genitourinary: denies: abnormal vagina bleeding, burning, dyspareunia, dysuria, flank pain, frequency, hematuria, incontinence, pain, , vagina discharge, urgency, others Neurological: denies: dizziness, fainting, headache, left sided numbness, left sided weakness, numbness, paresthesia, pre-existing deficit, right sided numbness, right sided weakness, seizure, speech problems, tingling, tremors, weakness, others Musculoskeletal: denies: back pain, gout, joint pain, joint swelling, muscle pain, muscle stiffness, neck pain, others Integumetry: denies: bruises, change in color, change in hair/nails, dryness, laceration, lesions, lumps, rash, wounds, others Allergic/Immunocompromised: denies: Difficulty Healing, Frequent Infections, Hives, Itching, others Hematologic/Lymphatic: denies: anemia, blood clots, easy bleeding, easy bruising, swollen glands, others Endocrine: denies: excessive hunger, excessive sweating, excessive thirst, excessive urination, flushing, intolerance to cold, intolerance to heat, unexplained weight gain, unexplained weight loss, others Psychiatric: denies: anxiety, bipolar disorder, depression, hopeless, panic disorder, schizophrenia, sleepless, suicidal, others All Other Systems: Reviewed and Negative Physical Exam General Appearance: No Apparent Distress, Normal HEENT: Normal ENT Inspection, Pharynx Normal, TMs Normal Neck: Full Range of Motion, Non-Tender, Normal, Normal Inspection Respiratory: Chest Non-Tender, Lungs Clear, No Accessory Muscle Use, No Respiratory Distress, Normal Breath Sounds Cardiovascular: No Edema, No JVD, No Murmur, No Gallop, Normal Peripheral Pulses, Regular Rate/Rhythm Breast Exam: Deferred Gastrointestinal: No Organomegaly, Non Tender, No Pulsatile Mass, Normal Bowel Sounds, Soft Genitalia: Deferred Pelvic: Deferred Rectal: Deferred Extremities: No calf tenderness, Normal capillary refill, Normal inspection, Normal range of motion, Non-tender, No pedal edema Musculoskeletal : Apperance: Normal Neurologic: Alert, residential roofer helper II-XII nml as Tested, No Motor Deficits, Normal Affect, Normal Mood, No Sensory Deficits Cerebellar Function: Normal Reflexes: Normal Skin: Dry, Normal Color, Warm Lymphatic: No Adenopathy Was a procedure done? Was a procedure done?: No Differential Dx Considerations may include: See MDM X-Ray, Labs, Meds, VS Vital Signs Date Time Temp Pulse Resp B/P (MAP) Pulse Ox O2 Delivery O2 Flow Rate FiO2 02/19/25 12:17 98.1 74 16 163/97 (119) 100 98.1 02/19/25 11:06 72 02/19/25 09:40 97.6 89 16 155/79 99 97.6 Lab Test 02/19/25 11:57 02/19/25 11:17 02/19/25 10:05 Range/Units Urine Color Light-yellow Yellow Urine Clarity Clear Clear Urine pH 6.5 5.0-9.0 Urine Specific [place] 1.009 1.001-1.035 Urine Protein Trace H Negative Urine Ketones Negative Negative Urine Blood Negative Negative /uL Urine Nitrite Negative Negative Urine Bilirubin Negative Negative Urine Urobilinogen Normal Negative mg/dL Urine Leukocyte Esterase Negative Negative /uL Urine RBC <1 0 - 4 /hpf Urine Microscopic WBC 1 0-5 /HPF Urine Squamous Epithelial Cells Few <5 /hpf Urine Bacteria None seen None Seen /hpf Urine Glucose Normal Normal mg/dL Troponin I High Sensitivity 7 8 </=34 ng/L White Blood Count 4.8 4.4-10.8 10^3/uL Red Blood Count 4.13 4.0-5.20 10^6/uL Hemoglobin 12.2 12.2-16.2 g/dL Hematocrit 36.4 36.0-46.0 % Mean Corpuscular Volume 88.1 80.0-100.0 fL Mean Corpuscular Hemoglobin 29.6 28.0-32.0 pg Mean Corpuscular Hemoglobin Concent 33.5 32.0-36.0 g/dL Red Cell Distribution Width 14.4 H 11.8-14.3 % Platelet Count 214 140-450 10^3/uL Mean Platelet Volume 7.8 6.9-10.8 fL Neutrophils (%) (Auto) 55.8 37.0-80.0 % Lymphocytes (%) (Auto) 28.8 10.0-50.0 % Monocytes (%) (Auto) 8.2 0.0-12.0 % Eosinophils (%) (Auto) 6.5 0.0-7.0 % Basophils (%) (Auto) 0.7 0.0-2.0 % Neutrophils # (Auto) 2.6 1.6-8.6 10 ^3/uL Lymphocytes # (Auto) 1.4 0.4-5.4 10 ^3/uL Monocytes # (Auto) 0.4 0-1.3 10 ^3/uL Eosinophils # (Auto) 0.3 0-0.8 10 ^3/uL Basophils # (Auto) 0 0-0.2 10 ^3/uL Nucleated Red Blood Cells 0.0 % Sodium Level 144 136-145 mmol/L Potassium Level 4.1 3.5-5.1 mmol/L Chloride Level 108 H 98-107 mmol/L Carbon Dioxide Level 25 20-31 mmol/L Anion Gap 11 5-15 Blood Urea Nitrogen 15 9-23 mg/dL Creatinine 1.39 H 0.550-1.02 mg/dL Glomerular Filtration Rate Calc 38 >90 mL/min BUN/Creatinine Ratio 10.8 10.0-20.0 Serum Glucose 120 H 74-106 mg/dL Calcium Level 9.7 8.7-10.4 mg/dL Time of 1ST Reevaluation: 11:00 Reevaluation 1ST: Unchanged Patient Education/Counseling: Diagnosis, Treatment, Prognosis Family Education/Counseling: No Family Present Additional Information Medical Decision Making: An 79-year-old female with a significant medical history including HTN, HLD, DM2, atrial fibrillation, and CKDpresents with palpitations, shortness of breath, chest pressure, and markedly elevated blood pressure at home (200 s/110s). Given her age, comorbidities, and symptoms, the differential diagnosis included acute coronary syndrome, atrial fibrillation with rapid ventricular response, hypertensive emergency, heart failure exacerbation, arrhythmia, pulmonary embolism, acute intracranial event, and metabolic derangements. Workup: CBC: benign; no anemia or leukocytosis. BMP: creatinine 1.39, consistent with CKD; no major electrolyte disturbance. Serial troponins (two): negative, lowering but not eliminating ACS risk in this high-risk patient. UA: benign; no infection or hematuria. Chest X-ray: benign; no pulmonary edema, consolidation, or widened mediastinum. CT brain (independently interpreted by me): no acute intracranial abnormality, important given her severe hypertension at home. EKG: possible left heart strain but nonischemic, no ST elevations, no malignant arrhythmias. Continuous cardiac monitoring in ED. ED Course / Assessment: At home, patient had severe hypertension (SBP >200, DBP >110) associated with chest pressure and dyspnea, which is concerning for potential end-organ risk including cardiac ischemia, pulmonary edema, intracranial hemorrhage, or stroke. While improved in the ED (163/97), she continues to experience symptoms requiring further inpatient monitoring. Given her atrial fibrillation history, symptomatic palpitations raise concern for intermittent arrhythmia, including paroxysmal AF, SVT, or tachyarrhythmia not captured on current EKG. Her chest discomfort, dyspnea, and age/DM2/HLD status place her at elevated cardiac risk despite negative troponins. CKD (Cr 1.39) increases the risk of hypertensive complications and limits medication options. Interventions: Given acetaminophen and aspirin for chest discomfort. Monitored for blood pressure trends, arrhythmias, and oxygenation. Reviewed all imaging and labs personally. Reassessed multiple times; remained stable but symptomatic. Risk Assessment / Plan: This patient has multiple high-risk comorbidities and symptoms consistent with possible cardiac ischemia, arrhythmia, or hypertensive end-organ risk. Outpatient management is not appropriate. She requires inpatient monitoring, telemetry, further cardiac evaluation, and possible adjustment of antihypertensive and rate-control therapies. Admit to inpatient service for evaluation of chest pressure, palpitations, dyspnea, and uncontrolled hypertension. Cardiology consultation to evaluate for arrhythmia, ACS rule-out, and optimization of rate control/antihypertensive regimen. Continue cardiac monitoring and trend BP/renal function. This encounter involved high-complexity medical decision making, extensive data review (serial troponins, multiple imaging modalities, EKG), and management of a high-risk presentation requiring hospital admission[place] [address]. SEPSIS Sepsis Screen Date sepsis recognized/suspect: Feb 19, 2025 Time Sepsis recognized/suspect: 939 Recent Procedure: No On Antibiotic Therapy: No Respiratory Rate >20: No Heart Rate >90: No Temp<36 C (96.8 F) or >38.3 C: No SBP <90 or MAP <65 mmHG: No New Acute Mental Status Change: No Is the patient on CPAP, BIPAP,: No Physician Orders Troponin-I Hs (02/19/25 12:49) Electrocardigram (02/19/25 10:49) Electrocardigram (02/19/25 12:49) Chest Portable (02/19/25 10:49) Head Without Contrast (02/19/25 10:49) Vital Signs Date Time Temp Pulse Resp B/P (MAP) Pulse Ox O2 Delivery O2 Flow Rate FiO2 02/19/25 12:17 98.1 74 16 163/97 (119) 100 98.1 02/19/25 11:06 72 02/19/25 09:40 97.6 89 16 155/79 99 97.6 Laboratory Tests Test 02/19/25 10:05 White Blood Count 4.8 10^3/uL (4.4-10.8) Departure 1 Departure Time of Disposition: 13:00 Impression: Primary Impression: Accelerated hypertension Additional Impressions: Suspected congestive heart failure Atrial fibrillation Acute dyspnea Disposition: ADMITTED INPATIENT Admit to: [facility] Condition: Guarded Critical Care Note Critical Care Time?: No Stability Stability form required: No Heart Score Heart Score: Heart Score Response (Comments) Value History Slightly Suspicious 0 EKG Normal 0 Age >65 2 Risk Factors >3 or Hx ASHD 2 Troponin Normal limit 0 Total 4 I personally scribed for DERIC PANDEY MD ([email or web address]) on 02/19/25 at 11:04. Electronically submitted by Sebastian Wood ([email or web address]). DERIC PANDEY MD Feb 19, 2025 11:04
--- NOTE | 2025-02-19 11:07 | ECG ---
[facility] Test Date: 2025-02-19 Test Time: 11:06:21 Pat Name: RADHA CHACON Department: ED Room: 0219 Gender: F Web Development Consultant: ISAIAS : 1945 Requested By: DERIC PANDEY Order Number: [id number] Reading MD: Kaiser Macias Measurements Intervals [place] Rate: 72 P: 58 FL: 137 QRS: 65 QRSD: 90 T: 65 QT: 416 QTc: 456 Interpretive Statements Sinus rhythm Atrial premature complexes Electronically Signed On 02-21-2025 17:55:07 PST by Kaiser Macias Please click the below link to view image of tracing.
--- NOTE | 2025-02-19 11:20 | DVH ---
EXAM: CT HEAD WITHOUT CONTRAST INDICATION: htn, palpitations TECHNIQUE: CT of the head without intravenous contrast. Radiation Dose : 1. Head: CT Dose: CTDI volume is 54 mGy. Dose-length product is 863.9 mGy*cm The dose indicators for CT are the volume Computed Tomography (CT) Dose Index (CTDIvol) and the Dose Length Product (DLP), and are measured in units of mGy and mGy-cm, respectively. These indicators are not patient dose, but values generated from the CT scanner acquisition factors. The report includes radiation exposure data for exposures received during this examination. COMPARISON: CT HEAD/BRAIN WO CON on DOS: 05/22/24 FINDINGS: There is no evidence of acute intracranial hemorrhage, extra-axial collection, mass effect, midline shift, herniation or hydrocephalus. The ventricles, sulci and cisterns are age appropriate. The cerna-white differentiation is intact. The visualized paranasal sinuses and mastoid air cells are clear. The surrounding soft tissues and osseous structures are unremarkable. IMPRESSION: No acute intracranial abnormality. Radiation optimization: All CT scans at this facility use at least one of these dose optimization techniques: automated exposure control mA and/or kV adjustment per patient size (includes targeted exams where dose is matched to clinical indication) or iterative reconstruction.
--- NOTE | 2025-02-19 11:23 | DVH ---
XY CHEST PORTABLE, HISTORY: htn, palpitations COMPARISON: XR CHEST 1V PORTABLE on DOS: 07/13/24, XY CHEST PORTABLE on DOS: 01/28/24, XY CHEST TWO VIEWS ROUTINE on DOS: 06/16/22 XR CHEST 1V PORTABLE on DOS: 07/13/24, XY CHEST PORTABLE on DOS: 01/28/24, XY CHEST TWO VIEWS ROUTINE on DOS: 06/16/22 TECHNICAL DATA: 1 view of the chest was obtained. FINDINGS: Lines and tubes: None Cardiomediastinal silhouette: normal Pulmonary vasculature: normal Lung expansion: normal Lung airspace: normal Lung interstitium: normal Pleura: normal Pneumothorax: no Bones: Unremarkable Other: no IMPRESSION: No acute intrathoracic abnormality.
[2025-02-19 12:15] LABS: Urine Protein, UAD TRACE (Negative)
[2025-02-19] MEDS: ACETAMINOPHEN 325 MG TAB PO ONE (13:32)
--- NOTE | 2025-02-19 14:27 | DVHHP2 ---
Admitting Diagnosis: Hypertension History of Present Illness 79-year-old female presents to the ER with prior medical history of AFib, CKF , diabetes, high lipids, hypertension: Surgical history of hysterectomy in the chief complaint of hypotension. Patient reports on taking her blood pressure this morning at home, for which the patient had a with a pressure of 172/96, and felt off, and had nausea, palpitations, and "shakiness". Patient immediately came to the ER for which had a blood pressure of 155/79. Patient notes on having similar symptoms in the past Denies any other symptoms at this time. Denies chills, fever, /V/D, SOB, CP. No other associated symptoms, modifiers, recent injuries or sick contacts present at this time. 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 History Family History Family History: Reviewed,noncontributory to illness, Unknown Social History Smoker: Unknown Alcohol: Unknown Drugs: Unknown Lives In: Home Patient Family History: FH: COPD (chronic obstructive pulmonary disease) G8 MOTHER Allergies: Coded Allergies: NO KNOWN ALLERGIES (Unverified , 11/05/21) Home Meds Active Scripts Metoprolol Succinate (Metoprolol Succinate Er) 100 Mg Tab, 100 MG PO BID for 30 Days, #60 TAB Prov:RUSTAM PEARSON [facility] 02/02/24 Empagliflozin (Jardiance) 10 Mg Tab, 10 MG PO DAILY for 30 Days, #30 TAB Prov:PEARSONRUSTAM [facility] 02/02/24 Isosorbide Dinitrate (Isosorbide Dinitrate) 5 Mg Tab, 5 MG PO TID for 30 Days, #90 TAB Prov:PEARSONRUSTAM [facility] 02/02/24 Hydralazine HCl (Hydralazine Hydrochloride) 10 Mg Tab, 10 MG PO Q8HR for 30 Days, #90 TAB [facility]/02/24 Amiodarone Hcl (Amiodarone Hcl) 200 Mg Tab, 200 MG PO BID for 30 Days, #60 TAB Prov:PEARSONRUSTAM [facility] 02/02/24 Reported Medications Ascorbic Acid (VITAMIN C TABLET) 500 Mg Tb, 1 TAB PO DAILY, #30 TAB 3 Refills 01/29/24 Trazodone Hcl (Trazodone Hcl) 50 Mg Tab, 1 TAB PO HSPRN PRN 01/28/24 Aspirin (Aspir-81) 81 Mg Tab, 1 TAB PO DAILY, #30 TAB 5 Refills 01/28/24 Atorvastatin Calcium (ATORVASTATIN CALCIUM) 20 Mg Tab, 1 TAB PO DAILY, #30 TAB 5 Refills 11/07/21 Vital Signs Vital Signs Date Time Temp Pulse Resp B/P (MAP) Pulse Ox O2 Delivery O2 Flow Rate FiO2 02/19/25 13:32 98.2 02/19/25 12:17 74 16 163/97 (119) 100 Physical Exam Generally-79 years old, well nourished well. No apparent distress HEENT-atraumatic normocephalic heart-irregularly irregular Lungs clear to auscultate Abdomen soft nontender nondistended Musculoskeletal-no edema no cyanosis Neuro-AO x3, no focal deficits SEPSIS Sepsis Screen Date sepsis recognized/suspect: Feb 19, 2025 Time Sepsis recognized/suspect: 939 Recent Procedure: No On Antibiotic Therapy: No Respiratory Rate >20: No Heart Rate >90: No Temp<36 C (96.8 F) or >38.3 C: No SBP <90 or MAP <65 mmHG: No New Acute Mental Status Change: No Is the patient on CPAP, BIPAP,: No Physician Orders Electrocardigram (02/19/25 10:49) Electrocardigram (02/19/25 12:49) Chest Portable (02/19/25 10:49) Head Without Contrast (02/19/25 10:49) Cardiac Diet-2gna,Lofat,Lochol (02/19/25 Lunch) Complete Blood Count (02/20/25 05:00) Complete Blood Count (02/21/25 05:00) Complete Blood Count (02/22/25 05:00) Complete Blood Count (02/23/25 05:00) Complete Blood Count (02/24/25 05:00) Comprehensive Metabolic Panel (02/20/25 05:00) Comprehensive Metabolic Panel (02/21/25 05:00) Comprehensive Metabolic Panel (02/22/25 05:00) Comprehensive Metabolic Panel (02/23/25 05:00) Comprehensive Metabolic Panel (02/24/25 05:00) Echo 2d Mode Cardiac Dop (02/19/25 14:20) Amiodarone Tablet (Cordarone Tablet) (02/19/25 22:00) Ascorbic Acid Tablet (Vitamin C Tablet) (02/20/25 10:00) Aspirin Enteric Coated Tablet (Ecotrin E (02/20/25 10:00) Atorvastatin (Lipitor) (02/20/25 10:00) Empagliflozin (Jardiance) (02/20/25 10:00) Hydralazine Hcl Tablet (Apresoline Table (02/19/25 22:00) Trazodone Hcl (Desyrel) (02/19/25 14:30) (Nf) Isosorbide Dinitrate (02/19/25 22:00) (Nf) Metoprolol Succinate (Metoprolol Biggs (02/19/25 22:00) Admit (02/19/25 14:20) Code Status (02/19/25 14:20) Vital Signs .PER UNIT PROTOCOL (02/19/25 14:20) Review Orders With Adm. (02/19/25 14:20) Encourage Activity As Tolerate (02/19/25 14:20) Sodium Chloride Lock (Saline Lock Ns) (02/19/25 22:00) Docusate Sodium Capsule (Colace Capsule) (02/19/25 14:30) Acetaminophen Tablet (Tylenol Tablet) (02/19/25 14:30) Notify Md Of Changes From Base (02/19/25 14:20) Advance Directive (02/19/25 14:20) Patient Condition (02/19/25 14:20) Allergies (02/19/25 14:20) Hydrocodone-Acet 5/325mg Tab ([place] (02/19/25 14:30) Hydromorphone Injection (Dilaudid Inject (02/19/25 14:30) Ondansetron Hcl (Zofran) (02/19/25 14:30) Thyroid Stimulating Hormone (02/19/25 14:20) Free T4 (Free Thyroxine) (02/19/25 14:20) Hydralazine Injection (Apresoline Inject (02/19/25 14:30) Vital Signs Date Time Temp Pulse Resp B/P (MAP) Pulse Ox O2 Delivery O2 Flow Rate FiO2 02/19/25 13:32 98.2 02/19/25 12:17 98.1 74 16 163/97 (119) 100 98.1 02/19/25 11:06 72 02/19/25 09:40 97.6 89 16 155/79 99 97.6 Laboratory Tests Test 02/19/25 10:05 White Blood Count 4.8 10^3/uL (4.4-10.8) Medications Medications Dose Ordered Sig/Og Route Start Time Stop Time Status Last Admin Dose Admin Aspirin 324 mg ONCE ONCE PO 02/19/25 13:00 02/19/25 13:10 DC 02/19/25 13:31 Results Labs Test 02/19/25 12:58 02/19/25 11:57 02/19/25 10:05 Range/Units Troponin I High Sensitivity 7 </=34 ng/L Urine Color Light-yellow Yellow Urine Clarity Clear Clear Urine pH 6.5 5.0-9.0 Urine Specific [place] 1.009 1.001-1.035 Urine Protein Trace H Negative Urine Ketones Negative Negative Urine Blood Negative Negative /uL Urine Nitrite Negative Negative Urine Bilirubin Negative Negative Urine Urobilinogen Normal Negative mg/dL Urine Leukocyte Esterase Negative Negative /uL Urine RBC <1 0 - 4 /hpf Urine Microscopic WBC 1 0-5 /HPF Urine Squamous Epithelial Cells Few <5 /hpf Urine Bacteria None seen None Seen /hpf Urine Glucose Normal Normal mg/dL White Blood Count 4.8 4.4-10.8 10^3/uL Red Blood Count 4.13 4.0-5.20 10^6/uL Hemoglobin 12.2 12.2-16.2 g/dL Hematocrit 36.4 36.0-46.0 % Mean Corpuscular Volume 88.1 80.0-100.0 fL Mean Corpuscular Hemoglobin 29.6 28.0-32.0 pg Mean Corpuscular Hemoglobin Concent 33.5 32.0-36.0 g/dL Red Cell Distribution Width 14.4 H 11.8-14.3 % Platelet Count 214 140-450 10^3/uL Mean Platelet Volume 7.8 6.9-10.8 fL Neutrophils (%) (Auto) 55.8 37.0-80.0 % Lymphocytes (%) (Auto) 28.8 10.0-50.0 % Monocytes (%) (Auto) 8.2 0.0-12.0 % Eosinophils (%) (Auto) 6.5 0.0-7.0 % Basophils (%) (Auto) 0.7 0.0-2.0 % Neutrophils # (Auto) 2.6 1.6-8.6 10 ^3/uL Lymphocytes # (Auto) 1.4 0.4-5.4 10 ^3/uL Monocytes # (Auto) 0.4 0-1.3 10 ^3/uL Eosinophils # (Auto) 0.3 0-0.8 10 ^3/uL Basophils # (Auto) 0 0-0.2 10 ^3/uL Nucleated Red Blood Cells 0.0 % Sodium Level 144 136-145 mmol/L Potassium Level 4.1 3.5-5.1 mmol/L Chloride Level 108 H 98-107 mmol/L Carbon Dioxide Level 25 20-31 mmol/L Anion Gap 11 5-15 Blood Urea Nitrogen 15 9-23 mg/dL Creatinine 1.39 H 0.550-1.02 mg/dL Glomerular Filtration Rate Calc 38 >90 mL/min BUN/Creatinine Ratio 10.8 10.0-20.0 Serum Glucose 120 H 74-106 mg/dL Calcium Level 9.7 8.7-10.4 mg/dL Primary Diagnosis Hypertensive urgency AFib 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 Resume beta-meng at this time due to heart rate greater than 55. 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
[2025-02-19] MEDS ORDERED: DOCUSATE SOD 100 MG CAP PO PRN (14:30)
[2025-02-19] MEDS ORDERED: ONDANSETRON HCL 4 MG/2 ML VIAL IV PRN (14:30)
[2025-02-19] MEDS ORDERED: HYDROmorphone HCL 2 MG/ML VL/or syr IV PRN (14:30)
[2025-02-19] MEDS ORDERED: DEXTROSE (50%) 50ML SYRG IV PRN (14:30)
[2025-02-19] MEDS ORDERED: HYDROcodone-ACET 5/325MG TAB PO PRN (14:30)
[2025-02-19] MEDS: hydrALAZINE HCL 20 MG/ML VL IV PRN (15:14)
[2025-02-19] MEDS: IPRATROPIUM BROM 0.5 MG/2.5ML INH SOL NEB ONE (15:54)
[2025-02-19] MEDS: ALBUTEROL SULF 2.5 MG/0.5ML(0.5%) NEB SOLN NEB ONE (15:54)
--- NOTE | 2025-02-19 16:48 | ECG ---
[facility] Test Date: 2025-02-19 Test Time: 16:46:52 Pat Name: RADHA CHACON Department: ED Room: 0219 Gender: F [employer] Marker: ISAIAS : 1945 Requested By: DERIC PANDEY Order Number: [id number] Reading MD: Kaiser Macias Measurements Intervals [place] Rate: 96 P: 0 VT: 0 QRS: 75 QRSD: 88 T: 78 QT: 388 QTc: 491 Interpretive Statements Atrial fibrillation Nonspecific repol abnormality, diffuse leads Borderline prolonged QT interval Electronically Signed On 02-21-2025 17:56:35 PST by Kaiser Macias Please click the below link to view image of tracing.
[2025-02-19] MEDS: ACCU-CHEK COMFORT CURVE STRIP VI SCH (17:00)
[2025-02-19] MEDS: InsuLIN REG 1unit/0.01ml Soln (100units/ml) SC SCH (17:39)
[2025-02-19] MEDS: SODIUM CHLOR 0.9% PF (SALINE LOCK) 10ML VIAL/SYR IV SCH (21:52)
[2025-02-19] MEDS: AMIODARONE HCL 200 MG TAB PO SCH (21:52)
[2025-02-19] MEDS: APIXABAN 2.5 MG TAB PO SCH (21:53)
[2025-02-19] MEDS: ATORVASTATIN 20 MG TAB PO SCH (21:53)
[2025-02-19] MEDS: METOPROLOL SUCCINATE XL 50 MG TAB PO SCH (21:53)
--- NOTE | 2025-02-19 21:54 | ECG ---
[facility] Test Date: 2025-02-19 Test Time: 15:44:19 Pat Name: RADHA CHACON Department: ED Room: 0219 Gender: F Case Work Aide: nicci : 1945 Requested By: DERIC PANDEY Order Number: [id number] Reading MD: Kaiser Macias Measurements Intervals [place] Rate: 102 P: 0 DC: 0 QRS: 70 QRSD: 93 T: 57 QT: 372 QTc: 485 Interpretive Statements Atrial fibrillation Repol abnrm suggests ischemia, diffuse leads Electronically Signed On 02-21-2025 17:56:27 PST by Kaiser Macias Please click the below link to view image of tracing.
[2025-02-20] VITALS (7 sets, daily range): BP systolic 114–172; BP diastolic 62–99; PULSE 71–85; RESP 16–18; TEMP 97.6–98.4; O2SAT 96–100
[2025-02-20 07:04] LABS: Hematocrit 34.6 % (36.0-46.0); Hemoglobin 11.9 g/dL (12.2-16.2); Mean Corpuscular Hemoglobin 29.9 pg (28.0-32.0); Mean Corpuscular Volume 87.1 fL (80.0-100.0); Nucleated Red Blood Cells % 0.1 %
[2025-02-20 07:19] LABS: Alanine Aminotransferase 19 U/L (7-40); Alkaline Phosphatase 103 U/L (46-116); Anion Gap 12 (5-15); BUN/Creatinine Ratio 16.0 (10.0-20.0); Blood Urea Nitrogen 23 mg/dL (9-23); Calcium 9.6 mg/dL (8.7-10.4); Carbon Dioxide 25 mmol/L (20-31); Glucose 94 mg/dL (74-106); Potassium 4.2 mmol/L (3.5-5.1); Sodium 144 mmol/L (136-145); Total Protein 7.0 g/dL (5.7-8.2)
[2025-02-20 07:20] LABS: Albumin 4.2 g/dL (3.2-4.8); Bilirubin, Total 0.7 mg/dL (0.2-1.0); Chloride 107 mmol/L (98-107)
[2025-02-20] MEDS: LISINOPRIL 20 MG TAB PO SCH (07:55)
[2025-02-20] MEDS: ASCORBIC ACID 500 MG TAB PO SCH (07:55)
[2025-02-20] MEDS: ASPirin-EC 81 mg tab PO SCH (07:55)
[2025-02-20] MEDS: EMPAGLIFLOZIN 10 MG TAB PO SCH (07:56)
[2025-02-20] MEDS: ACETAMINOPHEN 325 MG TAB PO PRN (08:07)
--- NOTE | 2025-02-20 10:13 | DVHPN2 ---
Progress Note Date Seen: Feb 20, 2025 Medical Necessity Reason Pt with a Central, PICC or Fol: No Subjective Patient reports: No new complaints Review of Systems: HEENT:Normal, CVS:Normal, RESPIRATORY:Normal, GI:Normal, :Normal, MSK:Normal, NEURO:Normal Objective vital signs Vital Sign Date Time Temp Pulse Resp B/P (MAP) Pulse Ox O2 Delivery O2 Flow Rate FiO2 02/20/25 09:16 97.8 85 18 172/99 (123) 100 97.8 02/20/25 08:00 Room Air* 0 21 Total Intake and Output 02/19/25 02/19/25 02/20/25 15:00 23:00 07:00 Intake Total 200 ml Output Total 0 ml Balance 200 ml medications Current Medications Medications Dose Ordered Sig/Og Route Start Time Stop Time Status Last Admin Dose Admin Amiodarone HCl 200 mg BID PO 02/19/25 22:00 02/20/25 07:54 200 MG Ascorbic Acid 500 mg DAILY PO 02/20/25 10:00 02/20/25 07:55 500 MG Aspirin 81 mg DAILY PO 02/20/25 10:00 02/20/25 07:55 81 MG Atorvastatin Calcium 20 mg HS PO 02/19/25 22:00 02/19/25 21:53 20 MG Empaglifozin 10 mg DAILY PO 02/20/25 10:00 02/20/25 07:56 10 MG Hydralazine HCl 10 mg Q8HR PO 02/19/25 22:00 02/20/25 06:10 10 MG Trazodone HCl 50 mg HSPRN PRN PO 02/19/25 14:30 Patient Own Medication 5 mg TID PO 02/19/25 22:00 Metoprolol Succinate 100 mg BID PO 02/19/25 22:00 02/20/25 07:57 100 MG Sodium Chloride 10 ml Q8HR IV 02/19/25 22:00 02/20/25 06:10 10 ML Docusate Sodium 100 mg BIDPRN PRN PO 02/19/25 14:30 Acetaminophen 650 mg Q6HP PRN PO 02/19/25 14:30 02/20/25 08:07 650 MG Acetaminophen/ Hydrocodone Bitart 1 tab Q4HP PRN PO 02/19/25 14:30 Hydromorphone HCl 0.5 mg Q4HP PRN IV 02/19/25 14:30 Ondansetron HCl 4 mg Q4HP PRN IV 02/19/25 14:30 Hydralazine HCl 10 mg Q6HP PRN IV 02/19/25 14:30 02/19/25 15:14 10 MG Lisinopril 20 mg DAILY PO 02/20/25 10:00 02/20/25 07:55 20 MG Diagnostic Test (Pha) 1 strip ACHS 02/19/25 17:00 02/20/25 06:35 1 STRIP Insulin Human Regular ACHS SC 02/19/25 17:00 02/19/25 21:58 3 UNITS Dextrose 50 ml UD PRN IV 02/19/25 14:30 Apixaban 2.5 mg BID PO 02/19/25 22:00 02/20/25 07:55 2.5 MG Examination: GENERAL:Normal, HEENT:Normal, NECK:Normal, LUNGS:Normal, CVS:Normal, ABDOMEN:Normal, MSK:Normal, SKIN:Normal, NEURO:Normal, :Normal laboratory and microbiology Laboratory Tests 02/20/25 06:20 Test 02/20/25 06:20 Range/Units Serum Glucose 94 74-106 mg/dL Problem List/Assessment/Plan Problem List/Assessment/Plan #1 hypertensive urgency: adjust meds #2 chronic systolic heart failure: echo #3 a fib: cont meds #4 ckd stage 3 #5 hyperlipidemia #6 dm: ssi advance care planning- full code- time spent 19 mins Plan discussed with: Patient Date of Service: Feb 20, 2025 Billing Provider: SIRI CHU MD Common Visit Codes: [id number] INP/OBS CARE(HIGH) Secondary Visit Codes: [id number] CARE PLAN 30 MINUTES SIRI CHU MD Feb 20, 2025 10:13
[2025-02-20] MEDS: ISOSORBIDE MONONITRATE ER 60 MG TAB PO ONE (13:37)
[2025-02-21 01:00] VITALS: BP 111/62; PULSE 62; RESP 17; TEMP 97.9; O2SAT 96
[2025-02-21 05:00] VITALS: BP 101/58; PULSE 57; RESP 18; TEMP 98.4; O2SAT 98
[2025-02-21] MEDS ORDERED: AMLO1TAB23 PO ×2 (07:00→10:01)
[2025-02-21] MEDS ORDERED: SENN-58 PO (07:00)
[2025-02-21] MEDS ORDERED: TIMO0.5S28 EACHEYE (07:00)
[2025-02-21] MEDS ORDERED: LATA0.008 EACHEYE (07:00)
[2025-02-21] MEDS ORDERED: GLIP5TAB21 PO (07:00)
[2025-02-21] MEDS ORDERED: TAMS0.4C39 PO (07:00)
[2025-02-21] MEDS ORDERED: LOSA-535 PO (07:00)
[2025-02-21] MEDS ORDERED: MULT-1018 PO (07:00)
[2025-02-21] MEDS ORDERED: CHOL1TAB30 PO (07:00)
[2025-02-21 07:45] LABS: Anion Gap 11 (5-15); Carbon Dioxide 24 mmol/L (20-31); Chloride 106 mmol/L (98-107); Potassium 4.2 mmol/L (3.5-5.1); Sodium 141 mmol/L (136-145)
[2025-02-21 07:46] LABS: Calcium 9.1 mg/dL (8.7-10.4)
[2025-02-21 07:51] LABS: BUN/Creatinine Ratio 16.5 (10.0-20.0); Glucose 84 mg/dL (74-106)
[2025-02-21 07:53] LABS: Blood Urea Nitrogen 29 mg/dL (9-23)
[2025-02-21 08:00] VITALS: PULSE 61; RESP 16; O2SAT 97
[2025-02-21 08:54] VITALS: BP 108/65; PULSE 61; RESP 16; TEMP 98.5; O2SAT 97
[2025-02-21] MEDS: ISOSORBIDE MONONITRATE ER 60 MG TAB PO SCH (09:31)
--- NOTE | 2025-02-21 10:00 | DVHDS2 ---
Discharge Summary Date of Admission Feb 19, 2025 at 14:20 Date of Discharge: Feb 21, 2025 Labs/Diagnostic Data: Laboratory Results Test 02/21/25 06:01 02/21/25 05:30 02/20/25 06:20 02/19/25 12:58 POC Glucose 89 mg/dl (70-106) Sodium Level 141 mmol/L (136-145) Potassium Level 4.2 mmol/L (3.5-5.1) Chloride Level 106 mmol/L (98-107) Carbon Dioxide Level 24 mmol/L (20-31) Anion Gap 11 (5-15) Blood Urea Nitrogen 29 mg/dL (9-23) Creatinine 1.76 mg/dL (0.550-1.02) Glomerular Filtration Rate Calc 29 mL/min (>90) BUN/Creatinine Ratio 16.5 (10.0-20.0) Serum Glucose 84 mg/dL (74-106) Calcium Level 9.1 mg/dL (8.7-10.4) B-Type Natriuretic Peptide 173.58 pg/mL (0-100) White Blood Count 5.7 10^3/uL (4.4-10.8) Red Blood Count 3.97 10^6/uL (4.0-5.20) Hemoglobin 11.9 g/dL (12.2-16.2) Hematocrit 34.6 % (36.0-46.0) Mean Corpuscular Volume 87.1 fL (80.0-100.0) Mean Corpuscular Hemoglobin 29.9 pg (28.0-32.0) Mean Corpuscular Hemoglobin Concent 34.3 g/dL (32.0-36.0) Red Cell Distribution Width 14.1 % (11.8-14.3) Platelet Count 206 10^3/uL (140-450) Mean Platelet Volume 8.0 fL (6.9-10.8) Neutrophils (%) (Auto) 63.6 % (37.0-80.0) Lymphocytes (%) (Auto) 20.5 % (10.0-50.0) Monocytes (%) (Auto) 11.0 % (0.0-12.0) Eosinophils (%) (Auto) 4.2 % (0.0-7.0) Basophils (%) (Auto) 0.7 % (0.0-2.0) Neutrophils # (Auto) 3.6 10 ^3/uL (1.6-8.6) Lymphocytes # (Auto) 1.2 10 ^3/uL (0.4-5.4) Monocytes # (Auto) 0.6 10 ^3/uL (0-1.3) Eosinophils # (Auto) 0.2 10 ^3/uL (0-0.8) Basophils # (Auto) 0 10 ^3/uL (0-0.2) Nucleated Red Blood Cells 0.1 % Total Bilirubin 0.7 mg/dL (0.2-1.0) Aspartate Amino Transferase (AST) 21 U/L (13-40) Alanine Aminotransferase (ALT) 19 U/L (7-40) Alkaline Phosphatase 103 U/L (46-116) Total Protein 7.0 g/dL (5.7-8.2) Albumin 4.2 g/dL (3.2-4.8) Troponin I High Sensitivity 7 ng/L (</=34) Test 02/19/25 11:57 02/19/25 10:05 Urine Color Light-yellow (Yellow) Urine Clarity Clear (Clear) Urine pH 6.5 (5.0-9.0) Urine Specific [place] 1.009 (1.001-1.035) Urine Protein Trace (Negative) Urine Ketones Negative (Negative) Urine Blood Negative /uL (Negative) Urine Nitrite Negative (Negative) Urine Bilirubin Negative (Negative) Urine Urobilinogen Normal mg/dL (Negative) Urine Leukocyte Esterase Negative /uL (Negative) Urine RBC <1 /hpf (0 - 4) Urine Microscopic WBC 1 /HPF (0-5) Urine Squamous Epithelial Cells Few /hpf (<5) Urine Bacteria None seen /hpf (None Seen) Urine Glucose Normal mg/dL (Normal) Thyroid Stimulating Hormone (TSH) 0.82 uIU/mL (0.55-4.78) Free Thyroxine (T4) Calculated 0.97 ng/dL (0.89-1.76) Other Laboratory Tests 02/21/25 05:30 02/20/25 06:20 Brief Hx & Hospital Course: SEE DICTATED NOTE Condition at Discharge: Fair Final Diagnosis/Problems List HTN Discharge Disposition: Home Discharge Instruct/Medications Diet: Cardiac 2g Na,low cholest Activity: No Restrictions, As Tolerated Follow Up/Referral: FU WITH PCP IN 1 WK Medications: RESUME HOME MEDS SCRIPT TO PHARMACY Scheduled Amiodarone Hcl (Amiodarone Hcl), 200 MG PO BID Amlodipine Besylate (Amlodipine Besylate), 1 TAB PO DAILY, (Reported) Ascorbic Acid (Vitamin C Tablet), 1 TAB PO DAILY, (Reported) Aspirin (Aspir-81), 1 TAB PO DAILY, (Reported) Atorvastatin Calcium (Atorvastatin Calcium), 1 TAB PO DAILY, (Reported) Cholecalciferol (Gnp Vitamin D), 5,000 UNIT PO DAILY, (Reported) Empagliflozin (Jardiance), 10 MG PO DAILY Glipizide (Glipizide), 2 TAB PO DAILY, (Reported) Hydralazine HCl (Hydralazine Hydrochloride), 10 MG PO Q8HR Isosorbide Dinitrate (Isosorbide Dinitrate), 5 MG PO TID Latanoprost (Latanoprost), 1 DROP EACHEYE QPM, (Reported) Losartan Potassium (Losartan Potassium), 100 MG PO DAILY, (Reported) Metoprolol Succinate (Metoprolol Succinate Er), 100 MG PO BID Multiple Vitamin (Multivitamins), 1 TAB PO DAILY, (Reported) Tamsulosin Hcl (Tamsulosin Hcl), 0.4 MG PO QPM, (Reported) Timolol Maleate (Timolol Maleate Ophthalmi), 1 DROP EACHEYE QAM, (Reported) Scheduled PRN Senna (Senokot), 2 TAB PO DAILY PRN for FOR CONSTIPATION, (Reported) Trazodone Hcl (Trazodone Hcl), 1 TAB PO HSPRN PRN, (Reported) Discharge Statement: "Patient was advised to return to the ER or call 911 if any headaches, dizziness, shortness of breath, chest pain, abdominal pain, bleeding, fevers, or worsening of medical condition. Patient was counseled about treatment plan, medications, possible side effects, patientverbalized understanding. All questions were answered to the best of my ability. This discharge took greater then 30 minutes in planning, reviewing documentation, counseling the patient, and discussing with other team members." ASSESSMENT ASSESSMENT Assessment HTN Date of Service: Feb 21, 2025 Billing Provider: SIRI CHU MD Common Visit Codes: 38092-KNR/OBS DISCH DAY >30min SIRI CHU MD Feb 21, 2025 10:00
--- NOTE | 2025-02-21 10:13 | DVHDS ---
DATE OF DISCHARGE: 02/21/2025 HISTORY OF PRESENT ILLNESS: The patient is an 79-year-old lady who was admitted with a history of elevated blood pressure and palpitations and shakiness. She has history of atrial fibrillation, chronic kidney disease, hypertension, and hyperlipidemia. HOSPITAL COURSE: The patient had a chest x-ray that showed no acute abnormality. The patient had a CT of the head that showed no acute abnormality. The patient's creatinine was between 1.4 to 1.7. Her echocardiogram is currently pending. The patient's blood pressure is now improved and she will be discharged home to resume her home medications as well as to be on amlodipine 10 mg daily. She will follow up with Dr. John Martinez in 1 week. FINAL DIAGNOSES: * Hypertensive urgency. * Chronic systolic heart failure. * Atrial fibrillation. * CKD stage 3. * Hyperlipidemia. * Diabetes mellitus. Time spent in discharge planning and review of plan with the patient and nursing was 39 minutes. MD JOCELYNE Chaidez/EKT TID: [id number] RECEIPT: [id number]
[2025-02-21 10:31] VITALS: BP 111/61; PULSE 60; RESP 18; TEMP 97.9; O2SAT 100
--- NOTE | 2025-02-21 12:05 | DVHSR ---
APPROVED REPORT EXAM: Two-dimensional and M-mode echocardiogram with Doppler and color Doppler. Blood Pressure: 172/99 mmHg INDICATION CHF RISK FACTORS Height: 5'6", Weight: 131 DIMENSIONS LVDd 4.2 (3.8-5.7cm) LA (2D) 4.5 (1.9-4.0cm) Aortic Root 3.3 (2.0-3.7cm) LVDs 2.9 (2.5-4.0cm) LA (MM) (1.9-4.0cm) Aortic Cusp Exc 1.5 (1.5-2.0cm) EF (%) 60.0 (55-70%) Rt. Atrium 4.6 (1.9-4.0cm) Asc. Aorta cm IVSd 1.1 (0.7-1.1cm) RV (D) 4.1 (1.8-2.4cm) PWd 1.0 (0.7-1.1cm) Mitral Valve Mitral Mitral Stenosis E wave 1.13m/s MV Mean GR. mmHg A wave 0.42m/s MV Peak GR. mmHg E/A ratio 2.7 2D MVA cm2 DECEL Time 178ms PRESS 1/2 Time ms Aortic Valve Aortic Valve Aortic Stenosis V1 1.00m/s AO Mean GR. 6mmHg V2 1.78m/s AO Peak GR. 13mmHg LVOT Diameter 1.8 (1.8-2.4cm) Doppler DICK 1.43cm2 AI P 1/2 Time 518.06ms Pulmonic Valve V2 0.88m/s Tricuspid Valve TR Velocity 3.25m/s RVSP 45mmHg Other Information Technically limited study due to body habitus. Conclusion lvef 55% grade 2 diastolic dysfunction RV enlarged biatrial enlargement moderate mild to moderate AI moderate pulmonic regurg moderate MAC mild to moderate tricuspid regurg
== END 2025-02-21 14:35 | disposition home or self-care (01) | DRG 305 ==
LOC: ER 09:36 → OVERFLOW 14:20 → CENTRAL 22:30
PROVIDERS: ADMIT Internal Medicine; ATTEND Internal Medicine
DX: I16.0 Hypertensive urgency (principal); N17.9 Acute kidney failure, unspecified; I50.22 Chronic systolic (congestive) heart failure; Z79.01 Long term (current) use of anticoagulants; E03.9 Hypothyroidism, unspecified; I13.0 Hypertensive heart and chronic kidney disease with heart failure and stage 1 through stage 4 chronic kidney disease, or unspecified chronic kidney disease; E11.22 Type 2 diabetes mellitus with diabetic chronic kidney disease; N18.30 Chronic kidney disease, stage 3 unspecified; I48.91 Unspecified atrial fibrillation; E78.5 Hyperlipidemia, unspecified; Z82.5 Family history of asthma and other chronic lower respiratory diseases; Z90.710 Acquired absence of both cervix and uterus; Z79.82 Long term (current) use of aspirin; Z79.899 Other long term (current) drug therapy
CPT/HCPCS: 36415; 70450; 71045; 80048; 80053; 81001; 82962; 83880; 84439; 84443; 84484; 85025; 93005; 93306; 94640; 96374; G0378; J1815

== ENCOUNTER 2025-03-03 09:03 | Inpatient (IN) | payer OTHER ==
[~2025-03-03] VITALS: Ht 167.6 cm; Wt 56.5 kg
[~2025-03-03 09:03] MED LIST changes: +AMLO1TAB23 PO; +CHOL1TAB30 PO; +GLIP5TAB21 PO; +LATA0.008 EACHEYE; +LOSA-535 PO; +MULT-1018 PO; +SENN-58 PO; +TAMS0.4C39 PO; +TIMO0.5S28 EACHEYE
[2025-03-03 09:15] VITALS: PULSE 76; RESP 20; O2SAT 96
--- NOTE | 2025-03-03 09:17 | ECG ---
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
--- NOTE | 2025-03-03 09:30 | ED.PDOC ---
SOB-HPI HPI Comments 79-year-old female with medical history of AFib and hypertension, presents to the ED for chief complaint of shortness of breath that started last night. Patient reports that shortness of breath worsens when laying flat and on exertion. Additionally, patient presents with swelling to bilateral ankles. Patient reports that she was recently admitted at the hospital 2 weeks ago due to uncontrolled hypertension although she does mention she is compliant with medication. Patient is not on any water pill. She denies any chest pain, nausea, vomiting, fever, chills, or recent illness. Chief Complaint: Shortness of Breath Time Seen by MD: 09:14 Primary Care Provider: BELINDA Mejia notes: Nurses Notes, Medications, Allergies Information Source: Patient Mode of Arrival: Ambulatory Severity: Moderate Timing: Hours Duration: Since onset Context: At Rest, With Light Exertion PE Risk Factors: None History of: None Modifying Factors: Nothing; Exertion, Laying flat Associated Signs and Symptoms: Wheeze Past Medical History PAST MEDICAL HISTORY: AFIB, CKF, DM, High Lipids, HTN Surgical History: Hysterectomy LINE PATROLLER History: No Pertinent LINE PATROLLER History Family History Family History: Reviewed,noncontributory to illness, Unknown Social History Smoker: Non-Smoker Alcohol: Denies ETOH Use Drugs: Denies Drug Use Lives In: Home Constitutional: denies: chills, diaphoresis, fatigue, fever, malaise, sweats, weakness, others EENTM: denies: blurred vision, double vision, ear bleeding, ear discharge, ear drainage, ear pain, ear ringing, eye pain, eye redness, hearing loss, mouth pain, mouth swelling, nasal discharge, nose bleeding, nose congestion, nose pain, photophobia, tearing, throat pain, throat swelling, voice changes, others Respiratory: reports: SOB at rest, shortness of breath, SOB with excertion; denies: cough, hemoptysis, orthopnea, stridor, wheezing, others Cardiovascular: reports: Dyspnea on exertion; denies: chest pain, dizzy spells, diaphoresis, edema, irregular heart beat, left arm pain, lightheadedness, palpitations, PND, syncope, others Gastrointestinal: denies: abdomen distended, abdominal pain, blood streaked bowels, constipated, diarrhea, dysphagia, difficulty swallowing, hematemesis, melena, nausea, poor appetite, poor fluid intake, rectal bleeding, rectal pain, vomiting, others Genitourinary: denies: abnormal vagina bleeding, burning, dyspareunia, dysuria, flank pain, frequency, hematuria, incontinence, pain, , vagina discharge, urgency, others Neurological: denies: dizziness, fainting, headache, left sided numbness, left sided weakness, numbness, paresthesia, pre-existing deficit, right sided numbness, right sided weakness, seizure, speech problems, tingling, tremors, weakness, others Musculoskeletal: denies: back pain, gout, joint pain, joint swelling, muscle pain, muscle stiffness, neck pain, others Integumetry: denies: bruises, change in color, change in hair/nails, dryness, laceration, lesions, lumps, rash, wounds, others Allergic/Immunocompromised: denies: Difficulty Healing, Frequent Infections, Hives, Itching, others Hematologic/Lymphatic: denies: anemia, blood clots, easy bleeding, easy bruising, swollen glands, others Endocrine: denies: excessive hunger, excessive sweating, excessive thirst, excessive urination, flushing, intolerance to cold, intolerance to heat, unexplained weight gain, unexplained weight loss, others Psychiatric: denies: anxiety, bipolar disorder, depression, hopeless, panic disorder, schizophrenia, sleepless, suicidal, others All Other Systems: Reviewed and Negative Physical Exam General Appearance: Moderate Distress HEENT: Normal ENT Inspection, Pharynx Normal, TMs Normal Neck: Full Range of Motion, Non-Tender, Normal, Normal Inspection Respiratory: Respiratory Distress, Rhonchi Cardiovascular: Irregular Breast Exam: Deferred Gastrointestinal: No Organomegaly, Non Tender, No Pulsatile Mass, Normal Bowel Sounds, Soft Genitalia: Deferred Pelvic: Deferred Rectal: Deferred Extremities: No calf tenderness, Normal capillary refill, Normal inspection, Normal range of motion, Non-tender, No pedal edema Musculoskeletal : Apperance: Normal Neurologic: Alert, strainer cleaner II-XII nml as Tested, No Motor Deficits, Normal Affect, Normal Mood, No Sensory Deficits Cerebellar Function: Normal Reflexes: Normal Skin: Dry, Normal Color, Warm Peripheral Pulses: 3+ Radial (R), 3+ Radial (L) Lymphatic: No Adenopathy Was a procedure done? Was a procedure done?: No Differential Dx Differential Diagnosis: Anxiety, Asthma, Bronchitis, CHF, COPD, Pneumonia, Respiratory Distress, URI X-Ray, Labs, Meds, VS Vital Signs Date Time Temp Pulse Resp B/P (MAP) Pulse Ox O2 Delivery O2 Flow Rate FiO2 03/03/25 09:31 73 20 96 Room Air 03/03/25 09:31 98.2 73 20 139/65 (89) 96 98.2 03/03/25 09:15 76 20 96 Room Air* 0 21 03/03/25 09:12 73 03/03/25 09:05 97.8 76 20 126/52 96 97.8 03/03/25 09:05 97.8 76 60 126/52 (76) 96 97.8 Patient alert. Came in because of shortness a breath. Vitals stable. Answering questions. Mild swelling of the extremities. Possible CHF. Was given Lasix. She is unable to lie down without being short of breath. Echocardiogram. Continue to monitor. Time of 1ST Reevaluation: 09:30 Reevaluation 1ST: Unchanged Patient Education/Counseling: Diagnosis, Treatment, Prognosis Family Education/Counseling: No Family Present SEPSIS Sepsis Screen Date sepsis recognized/suspect: Mar 03, 2025 Time Sepsis recognized/suspect: 905 Recent Procedure: No On Antibiotic Therapy: No Respiratory Rate >20: No Heart Rate >90: No Temp<36 C (96.8 F) or >38.3 C: No SBP <90 or MAP <65 mmHG: No New Acute Mental Status Change: No Is the patient on CPAP, BIPAP,: No Physician Orders Troponin-I Hs (03/03/25 10:40) Complete Blood Count (03/03/25 10:40) Comprehensive Metabolic Panel (03/03/25 10:40) Chest Portable (03/03/25 10:40) Electrocardigram (03/03/25 10:40) Vital Signs Date Time Temp Pulse Resp B/P (MAP) Pulse Ox O2 Delivery O2 Flow Rate FiO2 03/03/25 09:31 73 20 96 Room Air 03/03/25 09:31 98.2 73 20 139/65 (89) 96 98.2 03/03/25 09:15 76 20 96 Room Air* 0 21 03/03/25 09:12 73 03/03/25 09:05 97.8 76 20 126/52 96 97.8 03/03/25 09:05 97.8 76 60 126/52 (76) 96 97.8 Departure 1 Departure Time of Disposition: 10:55 Impression: Primary Impression: Acute CHF (congestive heart failure) Qualified Codes: I50.41 - Acute combined systolic (congestive) and diastolic (congestive) heart failure Additional Impression: HTN (hypertension) Qualified Codes: I10 - Essential (primary) hypertension Disposition: ADMITTED INPATIENT Admit to: Med Surg Condition: Guarded Critical Care Note Critical Care Time?: Yes (90 min-critical care time only) Stability Stability form required: No Heart Score Heart Score: Heart Score Response (Comments) Value History N/A 0 EKG N/A 0 Age N/A 0 Risk Factors N/A 0 Troponin N/A 0 Total 0 I personally scribed for KATHE CARVER MD ([email or web address]) on 03/03/25 at 09:30. Electronically submitted by Neelam Ellsworth ([facility]). KATHE CARVER MD Mar 03, 2025 09:30
[2025-03-03 11:06] LABS: Hematocrit 32.1 % (36.0-46.0); Hemoglobin 10.7 g/dL (12.2-16.2); Mean Corpuscular Hemoglobin 29.4 pg (28.0-32.0); Mean Corpuscular Volume 88.5 fL (80.0-100.0); Nucleated Red Blood Cells % 0.1 %
[2025-03-03] MEDS: FUROSEMIDE 40 MG/4 ML VIAL IV ONE (11:12)
--- NOTE | 2025-03-03 11:17 | DVH ---
EXAM: XY CHEST PORTABLE Indication: shortness of breath Technique: Single frontal view of the chest was obtained Comparison: XY CHEST PORTABLE on DOS: 02/19/25, XR CHEST 1V PORTABLE on DOS: 07/13/24, XY CHEST PORTABLE on DOS: 01/28/24, XY CHEST TWO VIEWS ROUTINE on DOS: 06/16/22, CHEST PORTABLE on DOS: 11/06/21 FINDINGS: Lines and Tubes: None Lungs: Diffuse interstitial opacities. Pleura: No effusion. No pneumothorax. Cardiomediastinal contours: Unremarkable. Atherosclerotic vascular calcifications of the thoracic aorta are noted. Bones: No acute osseous abnormality. IMPRESSION: Diffuse interstitial opacities suggestive of atypical infection versus pulmonary edema.
[2025-03-03 11:23] LABS: Albumin 4.6 g/dL (3.2-4.8); Alkaline Phosphatase 113 U/L (46-116); Anion Gap 12 (5-15); BUN/Creatinine Ratio 19.5 (10.0-20.0); Calcium 9.7 mg/dL (8.7-10.4); Potassium 4.5 mmol/L (3.5-5.1); Sodium 141 mmol/L (136-145); Total Protein 7.5 g/dL (5.7-8.2)
[2025-03-03 11:24] LABS: Bilirubin, Total 0.5 mg/dL (0.2-1.0)
[2025-03-03 11:34] LABS: Alanine Aminotransferase 53 U/L (7-40); Blood Urea Nitrogen 40 mg/dL (9-23); Carbon Dioxide 20 mmol/L (20-31); Chloride 109 mmol/L (98-107); Glucose 168 mg/dL (74-106)
[2025-03-03 12:05] VITALS: PULSE 82; RESP 18; O2SAT 98
[2025-03-03] MEDS ORDERED: MORPHINE SULFATE INJ 2 MG/ml SYRG IV PRN (12:30)
[2025-03-03] MEDS ORDERED: NITROGLYCERIN 0.4 MG SL TAB SL PRN (12:30)
[2025-03-03 12:39] LABS: Urine Protein, UAD Negative (Negative)
--- NOTE | 2025-03-03 13:01 | DVHHPRES ---
History of Present Illness Resident Creating Document: JHKISHAKATHYBISHOP RESIDENT History of Present Illness Patient is a 79-year-old female with a medical history of hypertension, atrial fibrillation, peripheral neuropathy, hyperlipidemia, CKD, diabetes presented to the ED with a chief complaint of shortness of breath since yesterday. Patient reported that she started to have shortness of breath at night yesterday which worsened on lying down and she had to sleep sitting up all night and also reported to have wheezing. She continued to have shortness of breaths in the morning and came to the hospital for further evaluation. Patient denied any cough, fever, phlegm, recent sick contacts. She also denied having any chest pain reported she had shortness of breath felt pressure-like sensation. She also has bilateral lower extremity swelling. On arrival to the ER chest x-ray showed diffuse interstitial opacities likely pulmonary edema. Medical history: As per HPI Surgical history: Hysterectomy, total hip replacement Social history: Patient lives with the family and denies smoking, alcohol, drug use Home medications: Eliquis 2.5 b.i.d., isosorbide 30 mg daily, metoprolol tartrate 50 mg twice daily, gabapentin 100 mg at night, 20 mg at night, hydralazine 25 mg 3 times daily, amlodipine 10 mg daily Review of Systems Review of Systems Patient reported mildly short of breath, on room air Denies any chest pain, nausea vomiting, dysuria Allergies: Coded Allergies: NO KNOWN ALLERGIES (Unverified , 11/05/21) Medications Current Medications Medications Dose Ordered Sig/Og Route Start Time Stop Time Status Last Admin Dose Admin Nitroglycerin 0.4 mg Q5MINP PRN SL 03/03/25 12:30 Morphine Sulfate 2 mg Q30M PRN IV 03/03/25 12:30 Furosemide 40 mg BIDD IV 03/03/25 18:00 Empaglifozin 10 mg DAILY PO 03/03/25 12:30 Amiodarone HCl 200 mg DAILY PO 03/04/25 10:00 Apixaban 2.5 mg BID PO 03/03/25 22:00 Pantoprazole Sodium 40 mg DAILY@0600 PO 03/04/25 06:00 Exam Vital Signs Vital Signs Date Time Temp Pulse Resp B/P (MAP) Pulse Ox O2 Delivery O2 Flow Rate FiO2 03/03/25 12:05 82 18 98 Room Air* 0 21 03/03/25 11:12 121/47 03/03/25 11:10 98.2 98.2 Exam Skin - Patients skin is warm and dry. HEENT - normocephalic, atraumatic, moist mucous membranes, no conjunctival pallor, no scleral icterus. Neck - full ROM, no LAD, mild elevation of the JVP Pulmonary - B/L basilar rales, no wheezing cardiovascular - regular S1,S2 heard, probable S3, bilateral pitting edema 3+ GI - soft, nontender abdomen. Bowel sounds normoactive Neurological - Patient is A/O X 4 . Bilateral upper extremity strength 5/5, bilateral lower extremity strength 5/5, no facial droop, normal speech, no tremor, no sensory deficiets. Labs/Xrays Labs Test 03/03/25 12:16 03/03/25 10:45 Range/Units Urine Color Light-yellow Yellow Urine Clarity Clear Clear Urine pH 5.0 5.0-9.0 Urine Specific [place] 1.015 1.001-1.035 Urine Protein Negative Negative Urine Ketones Negative Negative Urine Blood Negative Negative /uL Urine Nitrite Negative Negative Urine Bilirubin Negative Negative Urine Urobilinogen Normal Negative mg/dL Urine Leukocyte Esterase Negative Negative /uL Urine RBC 1 0 - 4 /hpf Urine Microscopic WBC 1 0-5 /HPF Urine Squamous Epithelial Cells Few <5 /hpf Urine Bacteria Few H None Seen /hpf Urine Glucose 1+ H Normal mg/dL White Blood Count 6.6 4.4-10.8 10^3/uL Red Blood Count 3.63 L 4.0-5.20 10^6/uL Hemoglobin 10.7 L 12.2-16.2 g/dL Hematocrit 32.1 L 36.0-46.0 % Mean Corpuscular Volume 88.5 80.0-100.0 fL Mean Corpuscular Hemoglobin 29.4 28.0-32.0 pg Mean Corpuscular Hemoglobin Concent 33.3 32.0-36.0 g/dL Red Cell Distribution Width 14.0 11.8-14.3 % Platelet Count 206 140-450 10^3/uL Mean Platelet Volume 8.3 6.9-10.8 fL Neutrophils (%) (Auto) 73.2 37.0-80.0 % Lymphocytes (%) (Auto) 14.5 10.0-50.0 % Monocytes (%) (Auto) 9.1 0.0-12.0 % Eosinophils (%) (Auto) 2.4 0.0-7.0 % Basophils (%) (Auto) 0.8 0.0-2.0 % Neutrophils # (Auto) 4.9 1.6-8.6 10 ^3/uL Lymphocytes # (Auto) 1.0 0.4-5.4 10 ^3/uL Monocytes # (Auto) 0.6 0-1.3 10 ^3/uL Eosinophils # (Auto) 0.2 0-0.8 10 ^3/uL Basophils # (Auto) 0.1 0-0.2 10 ^3/uL Nucleated Red Blood Cells 0.1 % Sodium Level 141 136-145 mmol/L Potassium Level 4.5 3.5-5.1 mmol/L Chloride Level 109 H 98-107 mmol/L Carbon Dioxide Level 20 20-31 mmol/L Anion Gap 12 5-15 Blood Urea Nitrogen 40 H 9-23 mg/dL Creatinine 2.05 H 0.550-1.02 mg/dL Glomerular Filtration Rate Calc 24 >90 mL/min BUN/Creatinine Ratio 19.5 10.0-20.0 Serum Glucose 168 H 74-106 mg/dL Calcium Level 9.7 8.7-10.4 mg/dL Total Bilirubin 0.5 0.2-1.0 mg/dL Aspartate Amino Transferase (AST) 51 H 13-40 U/L Alanine Aminotransferase (ALT) 53 H 7-40 U/L Alkaline Phosphatase 113 46-116 U/L Troponin I High Sensitivity 12 </=34 ng/L Total Protein 7.5 5.7-8.2 g/dL Albumin 4.6 3.2-4.8 g/dL SEPSIS Sepsis Screen Date sepsis recognized/suspect: Mar 03, 2025 Time Sepsis recognized/suspect: 1209 Recent Procedure: No On Antibiotic Therapy: No Respiratory Rate >20: No Heart Rate >90: No Temp<36 C (96.8 F) or >38.3 C: No SBP <90 or MAP <65 mmHG: No New Acute Mental Status Change: No Is the patient on CPAP, BIPAP,: No Physician Orders Chest Portable (03/03/25 10:40) Electrocardigram (03/03/25 10:40) Admit (03/03/25 12:16) Nitroglycerin Sublingual (Ntrostat Subli (03/03/25 12:30) Morphine Sulfate Injection (03/03/25 12:30) Oxygen By Nasal Cannula (03/03/25 12:16) Stat Ekg For Chest Pain (03/03/25 12:16) Notify Of Changes From Base (03/03/25 12:16) 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 (03/03/25 12:16) Emergency Dysrhythmia Protocol (03/03/25 12:16) Furosemide Injection (Lasix Injection) (03/03/25 18:00) Empagliflozin (Jardiance) (03/03/25 12:30) Amiodarone Tablet (Cordarone Tablet) (03/04/25 10:00) Rapid Influenza A&B (03/03/25 12:16) Covid19 Antigen Leida (03/03/25 ) Cardiac Diet-2gna,Lofat,Lochol (03/03/25 Lunch) Apixaban (Eliquis) (03/03/25 22:00) Pantoprazole Tablet (Protonix Tablet) (03/04/25 06:00) Complete Blood Count (03/04/25 04:00) Basic Metabolic Panel (03/04/25 04:00) Vital Signs Date Time Temp Pulse Resp B/P (MAP) Pulse Ox O2 Delivery O2 Flow Rate FiO2 03/03/25 12:05 82 18 98 Room Air* 0 21 03/03/25 11:12 121/47 03/03/25 11:10 98.2 72 20 121/47 (71) 97 98.2 03/03/25 09:31 73 20 96 Room Air 03/03/25 09:31 98.2 73 20 139/65 (89) 96 98.2 03/03/25 09:15 76 20 96 Room Air* 0 21 03/03/25 09:12 73 03/03/25 09:05 97.8 76 20 126/52 96 97.8 03/03/25 09:05 97.8 76 60 126/52 (76) 96 97.8 Laboratory Tests Test 03/03/25 10:45 White Blood Count 6.6 10^3/uL (4.4-10.8) Medications Medications Dose Ordered Sig/Og Route Start Time Stop Time Status Last Admin Dose Admin Furosemide 40 mg ONCE ONCE IV 03/03/25 11:00 03/03/25 11:12 DC 03/03/25 11:12 40 MG Assessment/Plan Assessment/Plan Acute on chronic heart failure with preserved ejection fraction, grade 2 diastolic dysfunction Hypertensive heart disease Paroxysmal atrial fibrillation, currently in sinus rhythm 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 - started on empagliflozin 10 mg daily , spironolactone 25 mg daily - metoprolol 25 b.i.d. - continued on Eliquis 2.5 b.i.d. - strict I&Os and cardiac diet PUD prophylaxis: Protonix Goals of care discussed with the patient for over 80 minutes. Full code Time spent: 33 minutes Plan discussed with Dr. Menchaca Plan discussed with: Patient, Other (RN) My Orders Orders - LOUIE BOWERS RESIDENT Procedure Category Date Status Time Admit ADMIT 03/03/25 Transmitted 12:16 Nitroglycerin PHA 03/03/25 In Process Sublingual (Ntrostat 12:30 Morphine Sulfate PHA 03/03/25 In Process Injection 12:30 Oxygen By Nasal RT 03/03/25 Transmitted Cannula 12:16 Stat Ekg For Chest SHARON 03/03/25 In Process Pain 12:16 Notify Of Changes SHARON 03/03/25 In Process From Base 12:16 [employer]vel [employer] Operator For SHARON 03/03/25 In Process 24 Hours 12:16 Emergency Dysrhythmia SHARON 03/03/25 In Process Protocol 12:16 Furosemide Injection PHA 03/03/25 In Process (Lasix Injection) 18:00 Empagliflozin PHA 03/03/25 In Process (Jardiance) 12:30 Amiodarone Tablet PHA 03/04/25 In Process (Cordarone Tablet) 10:00 Rapid Influenza A&B LAB 03/03/25 Logged 12:16 Covid19 Antigen Leida LAB 03/03/25 Logged Cardiac DIET 03/03/25 Transmitted Diet-2gna,Lofat,Lochol Lunch Apixaban (Eliquis) PHA 03/03/25 In Process 22:00 Pantoprazole Tablet PHA 03/04/25 In Process (Protonix Tablet) 06:00 Complete Blood Count LAB 03/04/25 Verified 04:00 Basic Metabolic Panel LAB 03/04/25 Verified 04:00 Date of Service: Mar 03, 2025 Billing Provider: WENDY MENCHACA MD Common Visit Codes: [id number] INP/OBS CARE (HIGH) Secondary Visit Codes: 52887-EESNFMAL CARE PLAN 30 MINUTES LOUIE BOWERS RESIDENT Mar 03, 2025 13:01 WENDY MENCHACA MD Mar 03, 2025 21:06
[2025-03-03] MEDS: EMPAGLIFLOZIN 10 MG TAB PO SCH (13:26)
[2025-03-03 13:51] LABS: COVID19 ANTIGEN SOFIA FIA NEGATIVE (NEGATIVE)
[2025-03-03 15:39] VITALS: BP 125/69; PULSE 65; PULSE 72; RESP 18; TEMP 97.5; O2SAT 95
[2025-03-03] MEDS: FUROSEMIDE 40 MG/4 ML VIAL IV SCH (17:23)
[2025-03-03 20:00] VITALS: PULSE 73; PULSE 74; RESP 17; O2SAT 94
[2025-03-03 21:00] VITALS: BP 117/58; PULSE 74; RESP 17; TEMP 98.1; O2SAT 94
[2025-03-03] MEDS: APIXABAN 2.5 MG TAB PO SCH (21:23)
[2025-03-03] MEDS: METOPROLOL TARTRATE 25 MG TAB PO SCH (21:23)
[2025-03-04] VITALS (8 sets, daily range): BP systolic 120–134; BP diastolic 59–89; PULSE 65–87; RESP 16–20; TEMP 97.1–99.7; O2SAT 94–100
[2025-03-04] MEDS: PANTOPRAZOLE 40 MG TAB PO SCH (05:31)
[2025-03-04 06:09] LABS: Hematocrit 31.1 % (36.0-46.0); Hemoglobin 10.9 g/dL (12.2-16.2); Mean Corpuscular Hemoglobin 30.4 pg (28.0-32.0); Mean Corpuscular Volume 86.5 fL (80.0-100.0); Nucleated Red Blood Cells % 0.0 %
[2025-03-04 06:20] LABS: Calcium 9.5 mg/dL (8.7-10.4); Chloride 107 mmol/L (98-107); Potassium 3.8 mmol/L (3.5-5.1); Sodium 143 mmol/L (136-145)
[2025-03-04 06:21] LABS: Anion Gap 13 (5-15); Carbon Dioxide 23 mmol/L (20-31)
[2025-03-04 06:26] LABS: BUN/Creatinine Ratio 19.4 (10.0-20.0); Blood Urea Nitrogen 38 mg/dL (9-23); Glucose 80 mg/dL (74-106)
[2025-03-04] MEDS: SPIRONOLACTONE 25 MG TAB PO SCH (09:43)
[2025-03-04] MEDS ORDERED: AMIODARONE HCL 200 MG TAB PO SCH (10:00)
--- NOTE | 2025-03-04 15:49 | DVHPN2 ---
Subjective Overnight events noted. Patient is complaining of shortness of breaths on minimal exertion. 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 Medications Current Medications Medications Dose Ordered Sig/Og Route Start Time Stop Time Status Last Admin Dose Admin Nitroglycerin 0.4 mg Q5MINP PRN SL 03/03/25 12:30 Morphine Sulfate 2 mg Q30M PRN IV 03/03/25 12:30 Furosemide 40 mg BIDD IV 03/03/25 18:00 03/04/25 05:31 40 MG Empaglifozin 10 mg DAILY PO 03/03/25 12:30 03/04/25 09:44 10 MG Apixaban 2.5 mg BID PO 03/03/25 22:00 03/04/25 09:44 2.5 MG Pantoprazole Sodium 40 mg DAILY@0600 PO 03/04/25 06:00 03/04/25 05:31 40 MG Spironolactone 25 mg DAILY PO 03/04/25 10:00 03/04/25 09:43 25 MG Metoprolol Tartrate 25 mg BID PO 03/03/25 22:00 03/04/25 09:44 25 MG Laboratory Results Laboratory Tests 03/04/25 04:46 Chemistry Test 03/04/25 04:46 Calcium Level 9.5 mg/dL (8.7-10.4) Urinalysis Test 03/03/25 12:16 Urine Color Light-yellow (Yellow) Urine Clarity Clear (Clear) Urine pH 5.0 (5.0-9.0) Urine Specific [place] 1.015 (1.001-1.035) Urine Protein Negative (Negative) Urine Ketones Negative (Negative) Urine Blood Negative /uL (Negative) Urine Nitrite Negative (Negative) Urine Bilirubin Negative (Negative) Urine Urobilinogen Normal mg/dL (Negative) Urine Leukocyte Esterase Negative /uL (Negative) Urine RBC 1 /hpf (0 - 4) Urine Microscopic WBC 1 /HPF (0-5) Urine Squamous Epithelial Cells Few /hpf (<5) Urine Bacteria Few /hpf (None Seen) H Urine Glucose 1+ mg/dL (Normal) H Assessment/Plan Assessment/Plan 79-year-old female with a known history of hypertension, paroxysmal AFib, peripheral neuropathy presented to the hospital with the shortness of breaths found to have 1. Acute on chronic congestive heart failure exacerbation likely diastolic dysfunction 2. Hypertension 3. Paroxysmal AFib 4. Shortness of breaths secondary to 1. -continue IV diuretics, follow up 2D echo cardiology consultation. -resume home medication Plan discussed with: Patient Problem List: (1) Accelerated hypertension (2) Acute CHF (congestive heart failure) (3) HTN (hypertension) Date of Service: Mar 04, 2025 Billing Provider: TWYLA MINER MD Common Visit Codes: [id number] INP/OBS CARE(HIGH) TWYLA MINER MD Mar 04, 2025 15:49
[2025-03-05] VITALS (8 sets, daily range): BP systolic 103–124; BP diastolic 60–67; PULSE 65–81; RESP 16–20; TEMP 97.8–98.4; O2SAT 96–98
--- NOTE | 2025-03-05 16:09 | DVHPN2 ---
Subjective Overnight events noted. Patient is complaining of shortness of breaths on minimal exertion. 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 Medications Current Medications Medications Dose Ordered Sig/Og Route Start Time Stop Time Status Last Admin Dose Admin Nitroglycerin 0.4 mg Q5MINP PRN SL 03/03/25 12:30 Morphine Sulfate 2 mg Q30M PRN IV 03/03/25 12:30 Furosemide 40 mg BIDD IV 03/03/25 18:00 03/05/25 05:57 40 MG Empaglifozin 10 mg DAILY PO 03/03/25 12:30 03/05/25 11:11 10 MG Apixaban 2.5 mg BID PO 03/03/25 22:00 03/05/25 11:13 2.5 MG Pantoprazole Sodium 40 mg DAILY@0600 PO 03/04/25 06:00 03/05/25 05:58 40 MG Spironolactone 25 mg DAILY PO 03/04/25 10:00 03/05/25 11:13 25 MG Metoprolol Tartrate 25 mg BID PO 03/03/25 22:00 03/05/25 11:13 25 MG Laboratory Results Laboratory Tests 03/04/25 04:46 Urinalysis Test 03/03/25 12:16 Urine Color Light-yellow (Yellow) Urine Clarity Clear (Clear) Urine pH 5.0 (5.0-9.0) Urine Specific [place] 1.015 (1.001-1.035) Urine Protein Negative (Negative) Urine Ketones Negative (Negative) Urine Blood Negative /uL (Negative) Urine Nitrite Negative (Negative) Urine Bilirubin Negative (Negative) Urine Urobilinogen Normal mg/dL (Negative) Urine Leukocyte Esterase Negative /uL (Negative) Urine RBC 1 /hpf (0 - 4) Urine Microscopic WBC 1 /HPF (0-5) Urine Squamous Epithelial Cells Few /hpf (<5) Urine Bacteria Few /hpf (None Seen) H Urine Glucose 1+ mg/dL (Normal) H Assessment/Plan Assessment/Plan 79-year-old female with a known history of hypertension, paroxysmal AFib, peripheral neuropathy presented to the hospital with the shortness of breaths found to have 1. Acute on chronic congestive heart failure exacerbation likely diastolic dysfunction 2. Hypertension 3. Paroxysmal AFib 4. Shortness of breaths secondary to 1. -continue IV diuretics, follow up 2D echo cardiology consultation. -resume home medication -plan of care discussed with the patient. Plan discussed with: Patient My Orders Orders - TWYLA MINER MD Procedure Category Date Status Time * Cardiology Consult CONS 03/05/25 Transmitted 14:05 Date of Service: Mar 05, 2025 Billing Provider: TWYLA MINER MD Common Visit Codes: [id number] INP/OBS CARE(HIGH) TWYLA MINER MD Mar 05, 2025 16:09
[2025-03-06] VITALS (7 sets, daily range): BP systolic 122–142; BP diastolic 64–77; PULSE 56–82; RESP 15–18; TEMP 97.8–98.4; O2SAT 96–99
[2025-03-06] MEDS ORDERED: hydrALAZINE HCL 20 MG/ML VL IV PRN (12:45)
--- NOTE | 2025-03-06 12:55 | DVHINCON2 ---
[facility] 03/06/25 1255: Date Seen: Mar 06, 2025 Referring Physician MD Alhaji Reason for Consultation CHF History of Present Illness This is a pleasant 79-year-old female who presented to the emergency room with a chief complaint of shortness of breath for three days. The patient reports progressive shortness of breath associated with SOMERS, PND, and bilateral ankle edema. Denies orthopnea, chest pain, palpitations, dizziness, or syncopal events. Follows up in the outpatient setting with Dr. Danica turpin with whom she has a follow up appointment this coming Thursday. Significant medical history includes congestive heart failure with preserved EF, paroxysmal atrial fibrillation on low-dose Eliquis/amiodarone/metoprolol, hypertension, dyslipidemia, [id number] diabetes mellitus, peripheral neuropathy, chronic kidney disease, and anemia in chronic disease. Past Medical History Past medical history reviewed. No other significant than mentioned above. Past Surgical History Hysterectomy Total right hip replacement Family History: FH: COPD (chronic obstructive pulmonary disease) G8 MOTHER Family History Family history reviewed. Social History Denies the use of illicit drugs, alcohol, or tobacco use. Allergies: Coded Allergies: NO KNOWN ALLERGIES (Unverified , 11/05/21) Home Meds Active Scripts Amlodipine Besylate (Amlodipine Besylate) 10 Mg Tab, 10 MG PO DAILY for 30 Days, #30 TAB 2 Refills Prov:SIRI CHU MD 02/21/25 Metoprolol Succinate (Metoprolol Succinate Er) 100 Mg Tab, 100 MG PO BID for 30 Days, #60 TAB Prov:RUSTAM [facility] RESIDENT 02/02/24 Empagliflozin (Jardiance) 10 Mg Tab, 10 MG PO DAILY for 30 Days, #30 TAB Prov:RUSTAM [facility] RESIDENT 02/02/24 Isosorbide Dinitrate (Isosorbide Dinitrate) 5 Mg Tab, 5 MG PO TID for 30 Days, #90 TAB Prov:RUSTAM [facility] RESIDENT 02/02/24 Hydralazine HCl (Hydralazine Hydrochloride) 10 Mg Tab, 10 MG PO Q8HR for 30 Days, #90 TAB Prov:RUSTAM [facility] RESIDENT 02/02/24 Amiodarone Hcl (Amiodarone Hcl) 200 Mg Tab, 200 MG PO BID for 30 Days, #60 TAB Prov:RUSTAM [facility] RESIDENT 02/02/24 Reported Medications Senna (Senokot) 8.6 Mg Tab, 2 TAB PO DAILY PRN for FOR CONSTIPATION, #40 TAB 02/21/25 Latanoprost (LATANOPROST) 0.005 % Kat, 1 DROP EACHEYE QPM, #7.5 ML 3 Refills 02/21/25 Timolol Maleate (Timolol Maleate Ophthalmi) 0.5 % Kat, 1 DROP EACHEYE QAM, #5 ML 5 Refills 02/21/25 Multiple Vitamin (Multivitamins) Tab, 1 TAB PO DAILY, #90 TAB 3 Refills 02/21/25 Losartan Potassium (Losartan Potassium) 100 Mg Tab, 100 MG PO DAILY for 30 Days, MG 02/21/25 Amlodipine Besylate (Amlodipine Besylate) 10 Mg Tab, 1 TAB PO DAILY, #30 TAB 5 Refills 02/21/25 Cholecalciferol (Gnp Vitamin D) 1,000 Unit Tab, 5000 UNIT PO DAILY, TAB 02/21/25 Tamsulosin Hcl (Tamsulosin Hcl) 0.4 Mg Cap, 0.4 MG PO QPM for 30 Days, MG 02/21/25 Glipizide (Glipizide) 5 Mg Tab, 2 TAB PO DAILY, #90 TAB 3 Refills 02/21/25 Ascorbic Acid (VITAMIN C TABLET) 500 Mg Tb, 1 TAB PO DAILY, #30 TAB 3 Refills 01/29/24 Trazodone Hcl (Trazodone Hcl) 50 Mg Tab, 1 TAB PO HSPRN PRN 01/28/24 Aspirin (Aspir-81) 81 Mg Tab, 1 TAB PO DAILY, #30 TAB 5 Refills 01/28/24 Atorvastatin Calcium (ATORVASTATIN CALCIUM) 20 Mg Tab, 1 TAB PO DAILY, #30 TAB 5 Refills 11/07/21 Home Meds Home medications reviewed. Review of Systems Constitutional: No symptom reported Ears, Nose, & Throat: No symptom reported Eyes: No symptom reported Neurological: No symptoms reported Pulmonary/Respiratory: SOB, PND, SOMERS Cardiovascular: Bilateral ankle edema Gastrointestinal: No symptom reported Genitourinary: No symptom reported Musculoskeletal: No symptom reported Skin: No symptom reported Psychiatric: No symptom reported Endocrine: No symptom reported Hemotologic/Lymphatic: No symptom reported Vital Signs Vital Signs Date Time Temp Pulse Resp B/P (MAP) Pulse Ox O2 Delivery O2 Flow Rate FiO2 03/06/25 12:01 81 142/64 03/06/25 09:00 98.0 16 96 98.0 03/05/25 19:58 Room Air* 0 21 Physical Exam General Appearance: Cooperative. Well developed. Well nourished. In no acute distress Head Exam: Normal inspection Neck Exam: Normal inspection. Non-tender. Normal alignment Pulmonary/Respiratory: Chest non-tender. Clear bilateral breath sounds Cardiovascular/Chest: Regular rate and rhythm. S1, S2. Sinus rhythm. No murmurs. No JVD. Peripheral Pulses: 2+ Radial (R). 2+ Radial (L). 2+ Pedal (R). 2+ Pedal (L) Abdominal Exam: Normal bowel sounds. Soft. Nontender. No hepatospenomegaly. No masses Ankle Exam: Negative ankle edema Lower extremities: Negative lower extremity edema Neuro/Mental Status: A&O x4. Coherent Thoughts/Psych: Normal thought pattern. Appropriate mood and affect. Good judgement and insight Appearance: In no acute distress Skin Exam: Normal inspection. Normal color. Warm. Dry Labs/Diagnostic Data Labs Test 03/04/25 04:46 03/03/25 13:02 03/03/25 12:16 03/03/25 10:45 Range/Units White Blood Count 4.9 # 4.4-10.8 10^3/uL Red Blood Count 3.60 L 4.0-5.20 10^6/uL Hemoglobin 10.9 L 12.2-16.2 g/dL Hematocrit 31.1 L 36.0-46.0 % Mean Corpuscular Volume 86.5 80.0-100.0 fL Mean Corpuscular Hemoglobin 30.4 28.0-32.0 pg Mean Corpuscular Hemoglobin Concent 35.2 32.0-36.0 g/dL Red Cell Distribution Width 13.8 11.8-14.3 % Platelet Count 197 140-450 10^3/uL Mean Platelet Volume 8.7 6.9-10.8 fL Neutrophils (%) (Auto) 59.4 37.0-80.0 % Lymphocytes (%) (Auto) 23.2 10.0-50.0 % Monocytes (%) (Auto) 11.9 0.0-12.0 % Eosinophils (%) (Auto) 4.7 0.0-7.0 % Basophils (%) (Auto) 0.8 0.0-2.0 % Neutrophils # (Auto) 2.9 1.6-8.6 10 ^3/uL Lymphocytes # (Auto) 1.1 0.4-5.4 10 ^3/uL Monocytes # (Auto) 0.6 0-1.3 10 ^3/uL Eosinophils # (Auto) 0.2 0-0.8 10 ^3/uL Basophils # (Auto) 0 0-0.2 10 ^3/uL Nucleated Red Blood Cells 0.0 % Sodium Level 143 136-145 mmol/L Potassium Level 3.8 3.5-5.1 mmol/L Chloride Level 107 98-107 mmol/L Carbon Dioxide Level 23 20-31 mmol/L Anion Gap 13 5-15 Blood Urea Nitrogen 38 H 9-23 mg/dL Creatinine 1.96 H 0.550-1.02 mg/dL Glomerular Filtration Rate Calc 25 >90 mL/min BUN/Creatinine Ratio 19.4 10.0-20.0 Serum Glucose 80 74-106 mg/dL Calcium Level 9.5 8.7-10.4 mg/dL Influenza Type A Antigen Negative Negative Influenza Type B Antigen Negative Negative SARS-CoV-2 Antigen (Rapid) Negative NEGATIVE Urine Color Light-yellow Yellow Urine Clarity Clear Clear Urine pH 5.0 5.0-9.0 Urine Specific [place] 1.015 1.001-1.035 Urine Protein Negative Negative Urine Ketones Negative Negative Urine Blood Negative Negative /uL Urine Nitrite Negative Negative Urine Bilirubin Negative Negative Urine Urobilinogen Normal Negative mg/dL Urine Leukocyte Esterase Negative Negative /uL Urine RBC 1 0 - 4 /hpf Urine Microscopic WBC 1 0-5 /HPF Urine Squamous Epithelial Cells Few <5 /hpf Urine Bacteria Few H None Seen /hpf Urine Glucose 1+ H Normal mg/dL Reticulocyte Count (auto) 0.72 0.5-1.5 % Total Bilirubin 0.5 0.2-1.0 mg/dL Aspartate Amino Transferase (AST) 51 H 13-40 U/L Alanine Aminotransferase (ALT) 53 H 7-40 U/L Alkaline Phosphatase 113 46-116 U/L Troponin I High Sensitivity 12 </=34 ng/L Total Protein 7.5 5.7-8.2 g/dL Albumin 4.6 3.2-4.8 g/dL Assessment Acute on chronic decompensated HFpEF, NYHA Class III Paroxysmal atrial fibrillation, now NSR (on low-dose Eliquis/amiodarone/BB) Non-insulin dependent diabetes mellitus Hypertension Dyslipidemia Chronic kidney disease stage IIIb * Transthoracic echocardiogram revealed (02/21/2025) an LVEF of 55% with grade 2 diastolic dysfunction, RV enlarged. Biatrial enlargement moderate. [id number] AI. Moderate pulmonic regurgitation. Moderate MAC. Mild to moderate tricuspid regurgitation * Twelve lead electrocardiogram x1 revealed a normal sinus rhythm with an associated first-degree atrioventricular block * Baseline troponin level is negative Plan/Recommendation (Dr. Vázquez) The patient presents now with compensated HFpEF. Continue GDMT for CHF (avoid nephrotoxic agents such as spironolactone/ACEIs/ARBs/ARNis) as well as preload and afterload reduction. Continue low-dose Eliquis and metoprolol therapy. Consider transitioning to flecainide therapy per primary liquified natural gas technician discretion . She has a follow up appointment with Dr. Macias on 03/10/2025. There is no further cardiac workup indicated at this time. Kindly call with any questions or concerns. Thank you for allowing us to participate in this patient's care. Please call if you have any questions or concerns. This medical document was created using an electronic medical record system with voice recognition software and computerized dictation system. Although this document has been carefully reviewed, there might still be some phonetic and typographical errors. Occasional wrong-word or ``sound-alike substitutions may have occurred due to the inherent limitations of voice recognition software. These areas are purely typographical due to imperfections of the software programs and do not reflect any compromise in the patient's medical care. Please read the chart carefully and recognize, using context, where these substitutions have occurred. Plan discussed with: Patient, Other NYHA Physical activity limitations: Class3(Marked) ordinary (activity causes symtoms) Date of Service: Mar 06, 2025 Billing Provider: NIGEL [facility]HL [facility] Common Codes: [id number] INP/OBS CARE (High) BALJINDER VÁZQUEZ MD 03/06/25 1656: Family History: FH: COPD (chronic obstructive pulmonary disease) G8 MOTHER Allergies: Coded Allergies: NO KNOWN ALLERGIES (Unverified , 11/05/21) Home Meds Active Scripts Amlodipine Besylate (Amlodipine Besylate) 10 Mg Tab, 10 MG PO DAILY for 30 Days, #30 TAB 2 Refills Prov:SIRI CHU MD 02/21/25 Metoprolol Succinate (Metoprolol Succinate Er) 100 Mg Tab, 100 MG PO BID for 30 Days, #60 TAB Prov:[facility] 02/02/24 Empagliflozin (Jardiance) 10 Mg Tab, 10 MG PO DAILY for 30 Days, #30 TAB Prov:[facility] 02/02/24 Isosorbide Dinitrate (Isosorbide Dinitrate) 5 Mg Tab, 5 MG PO TID for 30 Days, #90 TAB Prov:[facility] 02/02/24 Hydralazine HCl (Hydralazine Hydrochloride) 10 Mg Tab, 10 MG PO Q8HR for 30 Days, #90 TAB Prov:[facility] 02/02/24 Amiodarone Hcl (Amiodarone Hcl) 200 Mg Tab, 200 MG PO BID for 30 Days, #60 TAB Prov:[facility] 02/02/24 Reported Medications Senna (Senokot) 8.6 Mg Tab, 2 TAB PO DAILY PRN for FOR CONSTIPATION, #40 TAB 02/21/25 Latanoprost (LATANOPROST) 0.005 % Kat, 1 DROP EACHEYE QPM, #7.5 ML 3 Refills 02/21/25 Timolol Maleate (Timolol Maleate Ophthalmi) 0.5 % Kat, 1 DROP EACHEYE QAM, #5 ML 5 Refills 02/21/25 Multiple Vitamin (Multivitamins) Tab, 1 TAB PO DAILY, #90 TAB 3 Refills 02/21/25 Losartan Potassium (Losartan Potassium) 100 Mg Tab, 100 MG PO DAILY for 30 Days, MG 02/21/25 Amlodipine Besylate (Amlodipine Besylate) 10 Mg Tab, 1 TAB PO DAILY, #30 TAB 5 Refills 02/21/25 Cholecalciferol (Gnp Vitamin D) 1,000 Unit Tab, 5000 UNIT PO DAILY, TAB 02/21/25 Tamsulosin Hcl (Tamsulosin Hcl) 0.4 Mg Cap, 0.4 MG PO QPM for 30 Days, MG 02/21/25 Glipizide (Glipizide) 5 Mg Tab, 2 TAB PO DAILY, #90 TAB 3 Refills 02/21/25 Ascorbic Acid (VITAMIN C TABLET) 500 Mg Tb, 1 TAB PO DAILY, #30 TAB 3 Refills 01/29/24 Trazodone Hcl (Trazodone Hcl) 50 Mg Tab, 1 TAB PO HSPRN PRN 01/28/24 Aspirin (Aspir-81) 81 Mg Tab, 1 TAB PO DAILY, #30 TAB 5 Refills 01/28/24 Atorvastatin Calcium (ATORVASTATIN CALCIUM) 20 Mg Tab, 1 TAB PO DAILY, #30 TAB 5 Refills 11/07/21 Plan/Recommendation PT SEEN WITH CV TEAM AGREE WITH [facility] WELDER ASSESMENT AND PLAN DIASTOLIC DYSFUNCTION, APPEARS EUVOLEMIC FU WITH HER CARDS ON THURSDAY Plan discussed with: Patient HESHAMNIGEL MCGINNIS Mar 06, 2025 12:55 BALJINDER VÁZQUEZ MD Mar 06, 2025 16:56
[2025-03-06 13:56] LABS: Potassium 4.0 mmol/L (3.5-5.1); Sodium 136 mmol/L (136-145)
[2025-03-06 13:57] LABS: Anion Gap 14 (5-15); Carbon Dioxide 28 mmol/L (20-31)
[2025-03-06 13:58] LABS: Calcium 9.8 mg/dL (8.7-10.4); Chloride 94 mmol/L (98-107)
[2025-03-06 14:02] LABS: BUN/Creatinine Ratio 15.2 (10.0-20.0)
[2025-03-06 14:03] LABS: Blood Urea Nitrogen 39 mg/dL (9-23); Glucose 199 mg/dL (74-106)
--- NOTE | 2025-03-06 14:21 | CONS ---
Pharmacy Clinical Information: From Heart Failure Fallout Report on CQM Application, Aysha Chamorro V is a 79 year old female with PMH of hypertension, atrial fibrillation, peripheral neuropathy, hyperlipidemia, CKD, diabetes Per 2024 ADA guidelines, for people with diabetes aged >75 years, moderate- intensity statin therapy is recommended. Please add a lipid lowering agent if clinically appropriate CHANA LOMELI PHY RESIDENT Mar 06, 2025 14:21
--- NOTE | 2025-03-06 17:02 | DVHPN2 ---
Subjective SOB is better Reviewed: H&P Changes from previous H/P or p: No Changes Objective Vitals Vital Signs Date Time Temp Pulse Resp B/P (MAP) Pulse Ox O2 Delivery O2 Flow Rate FiO2 03/06/25 13:00 97.8 81 16 142/64 (90) 98 97.8 03/06/25 08:00 Room Air* 0 21 Intake/Output Intake and Output 03/06/25 05:00 Intake Total 118 ml Balance 118 ml Intake Oral 118 ml General Appearance: Alert, Oriented X3 HEENT: Atraumatic Lungs: Clear to auscultation Cardiovascular: Regular rate, Normal S1, Normal S2 Medications Current Medications Medications Dose Ordered Sig/Og Route Start Time Stop Time Status Last Admin Dose Admin Nitroglycerin 0.4 mg Q5MINP PRN SL 03/03/25 12:30 Morphine Sulfate 2 mg Q30M PRN IV 03/03/25 12:30 Empaglifozin 10 mg DAILY PO 03/03/25 12:30 03/06/25 12:02 10 MG Apixaban 2.5 mg BID PO 03/03/25 22:00 03/06/25 10:12 2.5 MG Pantoprazole Sodium 40 mg DAILY@0600 PO 03/04/25 06:00 03/06/25 05:56 40 MG Metoprolol Tartrate 25 mg BID PO 03/03/25 22:00 03/06/25 12:01 25 MG Hydralazine HCl 10 mg Q6HP PRN IV 03/06/25 12:45 Furosemide 20 mg BIDD IV 03/06/25 18:00 Laboratory Results Laboratory Tests 03/04/25 04:46 03/06/25 12:55 Chemistry Test 03/06/25 12:55 Calcium Level 9.8 mg/dL (8.7-10.4) Urinalysis Test 03/03/25 12:16 Urine Color Light-yellow (Yellow) Urine Clarity Clear (Clear) Urine pH 5.0 (5.0-9.0) Urine Specific [place] 1.015 (1.001-1.035) Urine Protein Negative (Negative) Urine Ketones Negative (Negative) Urine Blood Negative /uL (Negative) Urine Nitrite Negative (Negative) Urine Bilirubin Negative (Negative) Urine Urobilinogen Normal mg/dL (Negative) Urine Leukocyte Esterase Negative /uL (Negative) Urine RBC 1 /hpf (0 - 4) Urine Microscopic WBC 1 /HPF (0-5) Urine Squamous Epithelial Cells Few /hpf (<5) Urine Bacteria Few /hpf (None Seen) H Urine Glucose 1+ mg/dL (Normal) H Assessment/Plan Assessment/Plan 79-year-old female with a known history of hypertension, paroxysmal AFib, peripheral neuropathy presented to the hospital with the shortness of breaths found to have 1. Acute on chronic congestive heart failure exacerbation likely diastolic dysfunction 2. Hypertension 3. Paroxysmal AFib 4. Shortness of breaths secondary to 1. -continue IV diuretics, follow up 2D echo cardiology consultation. -resume home medication -plan of care discussed with the patient. Plan discussed with: Patient Date of Service: Mar 06, 2025 Billing Provider: ERVIN SAUCEDO MD Common Visit Codes: [id number] INP/OBS CARE(HIGH) ERVIN SAUCEDO MD Mar 06, 2025 17:02
[2025-03-06] MEDS: FUROSEMIDE 40 MG/4 ML VIAL IV SCH (19:03)
[2025-03-07] VITALS (10 sets, daily range): BP systolic 110–126; BP diastolic 55–78; PULSE 63–95; RESP 16–19; TEMP 97.5–98.5; O2SAT 95–99
[2025-03-07 12:30] LABS: Anion Gap 10 (5-15); Carbon Dioxide 30 mmol/L (20-31); Potassium 4.4 mmol/L (3.5-5.1); Sodium 136 mmol/L (136-145)
[2025-03-07 12:31] LABS: Calcium 9.7 mg/dL (8.7-10.4)
[2025-03-07 12:36] LABS: BUN/Creatinine Ratio 16.5 (10.0-20.0)
[2025-03-07 12:37] LABS: Blood Urea Nitrogen 43 mg/dL (9-23); Chloride 96 mmol/L (98-107); Glucose 198 mg/dL (74-106)
--- NOTE | 2025-03-07 15:49 | DVHINCON2 ---
Date of service: Mar 07, [address] Saucedo Reason for Consultation Acute kidney injury History of Present Illness Patient is a 79-year-old female with past medical history significant for AFIB, chronic diastolic Congestive heart failure, CKd 4, DM, High Lipids, and HTN is admitted for shortness of breath. On admission patient found to have elevated BUN creatinine nephrology is consulted for acute kidney injury Past Medical History AFIB, chronic diastolic Congestive heart failure, CKd 4, DM, High Lipids, and HTN Past Surgical History Hysterectomy Allergies: Coded Allergies: NO KNOWN ALLERGIES (Unverified , 11/05/21) Home Meds Active Scripts Sevelamer Hydrochloride (Renagel) 800 Mg Tab, 800 MG PO TIDWM for 90 Days, #270 TAB Prov:ERVIN SAUCEDO MD 03/08/25 Apixaban Base (ELIQUIS) 2.5 Mg Tab, 2.5 MG PO BID for 90 Days, #180 TAB Prov:ERVIN SAUCEDO MD 03/08/25 Amlodipine Besylate (Amlodipine Besylate) 10 Mg Tab, 10 MG PO DAILY for 30 Days, #30 TAB 2 Refills Prov:SIRI CHU MD 02/21/25 Metoprolol Succinate (Metoprolol Succinate Er) 100 Mg Tab, 100 MG PO BID for 30 Days, #60 TAB Prov:RUSTAM PEARSON RESIDENT 02/02/24 Empagliflozin (Jardiance) 10 Mg Tab, 10 MG PO DAILY for 30 Days, #30 TAB Prov:RUSTAM PEARSON 02/02/24 Isosorbide Dinitrate (Isosorbide Dinitrate) 5 Mg Tab, 5 MG PO TID for 30 Days, #90 TAB Prov:RUSTAM PEARSON 02/02/24 Hydralazine HCl (Hydralazine Hydrochloride) 10 Mg Tab, 10 MG PO Q8HR for 30 Days, #90 TAB Prov:RUSTAM PEARSON 02/02/24 Amiodarone Hcl (Amiodarone Hcl) 200 Mg Tab, 200 MG PO BID for 30 Days, #60 TAB Prov:RUSTAM PEARSON 02/02/24 Reported Medications Senna (Senokot) 8.6 Mg Tab, 2 TAB PO DAILY PRN for FOR CONSTIPATION, #40 TAB 02/21/25 Latanoprost (LATANOPROST) 0.005 % Kat, 1 DROP EACHEYE QPM, #7.5 ML 3 Refills 02/21/25 Timolol Maleate (Timolol Maleate Ophthalmi) 0.5 % Kat, 1 DROP EACHEYE QAM, #5 ML 5 Refills 02/21/25 Multiple Vitamin (Multivitamins) Tab, 1 TAB PO DAILY, #90 TAB 3 Refills 02/21/25 Losartan Potassium (Losartan Potassium) 100 Mg Tab, 100 MG PO DAILY for 30 Days, MG 02/21/25 Amlodipine Besylate (Amlodipine Besylate) 10 Mg Tab, 1 TAB PO DAILY, #30 TAB 5 Refills 02/21/25 Cholecalciferol (Gnp Vitamin D) 1,000 Unit Tab, 5000 UNIT PO DAILY, TAB 02/21/25 Tamsulosin Hcl (Tamsulosin Hcl) 0.4 Mg Cap, 0.4 MG PO QPM for 30 Days, MG 02/21/25 Glipizide (Glipizide) 5 Mg Tab, 2 TAB PO DAILY, #90 TAB 3 Refills 02/21/25 Ascorbic Acid (VITAMIN C TABLET) 500 Mg Tb, 1 TAB PO DAILY, #30 TAB 3 Refills 01/29/24 Trazodone Hcl (Trazodone Hcl) 50 Mg Tab, 1 TAB PO HSPRN PRN 01/28/24 Aspirin (Aspir-81) 81 Mg Tab, 1 TAB PO DAILY, #30 TAB 5 Refills 01/28/24 Atorvastatin Calcium (ATORVASTATIN CALCIUM) 20 Mg Tab, 1 TAB PO DAILY, #30 TAB 5 Refills 11/07/21 Current Medications Current Medications Medications (Trade) Dose Ordered Sig/Og Route PRN Reason Start Time Stop Time Status Last Admin Sevelamer HCl (Renagel) 800 mg TIDWM PO 03/08/25 12:00 03/08/25 16:03 DC 03/08/25 11:43 Calcitriol (Rocaltrol Capsule) 0.25 mcg DAILY PO 03/09/25 10:03/08/25 16:03 DC Family History: FH: COPD (chronic obstructive pulmonary disease) G8 MOTHER Review of Systems All 12 items ROS reviewed with the patient, none is significant except what is mentioned in the HPI H&P Exam Vital Signs/I&O Vital Sign Date Time Temp Pulse Resp B/P (MAP) Pulse Ox O2 Delivery O2 Flow Rate FiO2 03/08/25 13:00 97.6 65 16 126/68 (87) 99 97.6 03/08/25 07:40 Room Air* 0 21 Intake and Output 03/07/25 03/08/25 19:00 07:00 Intake Total 250 ml Balance 250 ml Intake Oral 250 ml Physical Exam Awake and alert Lung: clear b/l COR: RRR GI: WNL : WNL Ext: no CCE Neuro: non focal Labs/Diagnostic Data Labs/Diagnostic Data Laboratory Tests Test 03/08/25 09:38 03/07/25 17:20 03/07/25 16:15 03/07/25 11:45 Range/Units Sodium Level 136 136-145 mmol/L Potassium Level 4.4 3.5-5.1 mmol/L Chloride Level 97 L 98-107 mmol/L Carbon Dioxide Level 28 20-31 mmol/L Anion Gap 11 5-15 Blood Urea Nitrogen 45 H 9-23 mg/dL Creatinine 2.53 H 0.550-1.02 mg/dL Glomerular Filtration Rate Calc 19 >90 mL/min BUN/Creatinine Ratio 17.8 10.0-20.0 Serum Glucose 194 H 74-106 mg/dL Calcium Level 9.8 8.7-10.4 mg/dL Urine Color Colorless Yellow Urine Clarity Clear Clear Urine pH 6.5 5.0-9.0 Urine Specific [place] 1.009 1.001-1.035 Urine Protein Negative Negative Urine Ketones Negative Negative Urine Blood Negative Negative /uL Urine Nitrite Negative Negative Urine Bilirubin Negative Negative Urine Urobilinogen Normal Negative mg/dL Urine Leukocyte Esterase Negative Negative /uL Urine RBC 1 0 - 4 /hpf Urine Microscopic WBC 1 0-5 /HPF Urine Squamous Epithelial Cells Few <5 /hpf Urine Bacteria None seen None Seen /hpf Urine Creatinine 55.43 30.0-125.0 mg/dL Urine Protein/Creatinine Ratio 0.14 Urine Sodium 24 L 40-220 mmol/L Urine Glucose 4+ H Normal mg/dL Urine Total Protein 7.7 1-14 mg/dL Vitamin D 25-Hydroxy 51.1 30.0-100 ng/mL Phosphorus Level 5.7 H 2.4-5.1 mg/dL Magnesium Level 2.3 1.6-2.6 mg/dL B-Type Natriuretic Peptide 48.79 0-100 pg/mL Parathyroid Hormone (Intact) 128.9 H 18.4-80.1 pg/mL Test 03/07/25 11:42 03/06/25 12:55 03/04/25 04:46 03/03/25 13:02 Range/Units Sodium Level 136 136 # 143 136-145 mmol/L Potassium Level 4.4 4.0 3.8 3.5-5.1 mmol/L Chloride Level 96 L 94 #L 107 98-107 mmol/L Carbon Dioxide Level 30 28 23 20-31 mmol/L Anion Gap 10 14 13 5-15 Blood Urea Nitrogen 43 H 39 H 38 H 9-23 mg/dL Creatinine 2.60 H 2.56 #H 1.96 H 0.550-1.02 mg/dL Glomerular Filtration Rate Calc 18 18 25 >90 mL/min BUN/Creatinine Ratio 16.5 15.2 19.4 10.0-20.0 Serum Glucose 198 H 199 H 80 74-106 mg/dL Calcium Level 9.7 9.8 9.5 8.7-10.4 mg/dL White Blood Count 4.9 # 4.4-10.8 10^3/uL Red Blood Count 3.60 L 4.0-5.20 10^6/uL Hemoglobin 10.9 L 12.2-16.2 g/dL Hematocrit 31.1 L 36.0-46.0 % Mean Corpuscular Volume 86.5 80.0-100.0 fL Mean Corpuscular Hemoglobin 30.4 28.0-32.0 pg Mean Corpuscular Hemoglobin Concent 35.2 32.0-36.0 g/dL Red Cell Distribution Width 13.8 11.8-14.3 % Platelet Count 197 140-450 10^3/uL Mean Platelet Volume 8.7 6.9-10.8 fL Neutrophils (%) (Auto) 59.4 37.0-80.0 % Lymphocytes (%) (Auto) 23.2 10.0-50.0 % Monocytes (%) (Auto) 11.9 0.0-12.0 % Eosinophils (%) (Auto) 4.7 0.0-7.0 % Basophils (%) (Auto) 0.8 0.0-2.0 % Neutrophils # (Auto) 2.9 1.6-8.6 10 ^3/uL Lymphocytes # (Auto) 1.1 0.4-5.4 10 ^3/uL Monocytes # (Auto) 0.6 0-1.3 10 ^3/uL Eosinophils # (Auto) 0.2 0-0.8 10 ^3/uL Basophils # (Auto) 0 0-0.2 10 ^3/uL Nucleated Red Blood Cells 0.0 % Influenza Type A Antigen Negative Negative Influenza Type B Antigen Negative Negative SARS-CoV-2 Antigen (Rapid) Negative NEGATIVE Test 03/03/25 12:16 03/03/25 10:45 Range/Units Urine Color Light-yellow Yellow Urine Clarity Clear Clear Urine pH 5.0 5.0-9.0 Urine Specific [place] 1.015 1.001-1.035 Urine Protein Negative Negative Urine Ketones Negative Negative Urine Blood Negative Negative /uL Urine Nitrite Negative Negative Urine Bilirubin Negative Negative Urine Urobilinogen Normal Negative mg/dL Urine Leukocyte Esterase Negative Negative /uL Urine RBC 1 0 - 4 /hpf Urine Microscopic WBC 1 0-5 /HPF Urine Squamous Epithelial Cells Few <5 /hpf Urine Bacteria Few H None Seen /hpf Urine Glucose 1+ H Normal mg/dL White Blood Count 6.6 4.4-10.8 10^3/uL Red Blood Count 3.63 L 4.0-5.20 10^6/uL Hemoglobin 10.7 L 12.2-16.2 g/dL Hematocrit 32.1 L 36.0-46.0 % Mean Corpuscular Volume 88.5 80.0-100.0 fL Mean Corpuscular Hemoglobin 29.4 28.0-32.0 pg Mean Corpuscular Hemoglobin Concent 33.3 32.0-36.0 g/dL Red Cell Distribution Width 14.0 11.8-14.3 % Platelet Count 206 140-450 10^3/uL Mean Platelet Volume 8.3 6.9-10.8 fL Neutrophils (%) (Auto) 73.2 37.0-80.0 % Lymphocytes (%) (Auto) 14.5 10.0-50.0 % Monocytes (%) (Auto) 9.1 0.0-12.0 % Eosinophils (%) (Auto) 2.4 0.0-7.0 % Basophils (%) (Auto) 0.8 0.0-2.0 % Neutrophils # (Auto) 4.9 1.6-8.6 10 ^3/uL Lymphocytes # (Auto) 1.0 0.4-5.4 10 ^3/uL Monocytes # (Auto) 0.6 0-1.3 10 ^3/uL Eosinophils # (Auto) 0.2 0-0.8 10 ^3/uL Basophils # (Auto) 0.1 0-0.2 10 ^3/uL Nucleated Red Blood Cells 0.1 % Reticulocyte Count (auto) 0.72 0.5-1.5 % Sodium Level 141 136-145 mmol/L Potassium Level 4.5 3.5-5.1 mmol/L Chloride Level 109 H 98-107 mmol/L Carbon Dioxide Level 20 20-31 mmol/L Anion Gap 12 5-15 Blood Urea Nitrogen 40 H 9-23 mg/dL Creatinine 2.05 H 0.550-1.02 mg/dL Glomerular Filtration Rate Calc 24 >90 mL/min BUN/Creatinine Ratio 19.5 10.0-20.0 Serum Glucose 168 H 74-106 mg/dL Calcium Level 9.7 8.7-10.4 mg/dL Total Bilirubin 0.5 0.2-1.0 mg/dL Aspartate Amino Transferase (AST) 51 H 13-40 U/L Alanine Aminotransferase (ALT) 53 H 7-40 U/L Alkaline Phosphatase 113 46-116 U/L Troponin I High Sensitivity 12 </=34 ng/L Total Protein 7.5 5.7-8.2 g/dL Albumin 4.6 3.2-4.8 g/dL Assessment Acute kidney injury superimposed Chronic Kidney Disease stage four secondary hemodynamic mediated Acute respiratory failure, O2 supplement Congestive heart failure exacerbation AFib Diabetes mellitus type 2 Hypertension Anemia of chronic kidney disease Recommendations Closely monitor fluid and electrolytes Avoid nephrotoxic medication Strict I&Os Renal diet Insulin sliding scale Blood pressure control Check urine electrolytes and protein excretion Kidney ultrasound reported earlier within normal limit Cardiology consult We will continue to follow Patient seen and examined by myself. I discussed my plan of care with the patient and primary nurse at the bedside I would like to thank Dr. Saucedo for the consult, will follow up Plan discussed with: Patient KENYA PANIAGUA MD Mar 07, 2025 15:49
[2025-03-07 16:23] LABS: Magnesium 2.3 mg/dL (1.6-2.6)
--- NOTE | 2025-03-07 17:35 | DVHPN2 ---
Subjective SOB is better Reviewed: H&P Changes from previous H/P or p: No Changes Objective Vitals Vital Signs Date Time Temp Pulse Resp B/P (MAP) Pulse Ox O2 Delivery O2 Flow Rate FiO2 03/07/25 13:00 98.0 71 17 121/55 (77) 98 98.0 03/07/25 07:40 Room Air* 0 21 Intake/Output Intake and Output 03/07/25 05:00 Intake Total 200 ml Balance 200 ml Intake Oral 200 ml General Appearance: Alert, Oriented X3 HEENT: Atraumatic Lungs: Clear to auscultation Cardiovascular: Regular rate, Normal S1, Normal S2 Medications Current Medications Medications Dose Ordered Sig/Og Route Start Time Stop Time Status Last Admin Dose Admin Nitroglycerin 0.4 mg Q5MINP PRN SL 03/03/25 12:30 Morphine Sulfate 2 mg Q30M PRN IV 03/03/25 12:30 Empaglifozin 10 mg DAILY PO 03/03/25 12:30 03/07/25 08:52 10 MG Apixaban 2.5 mg BID PO 03/03/25 22:00 03/07/25 08:52 2.5 MG Pantoprazole Sodium 40 mg DAILY@0600 PO 03/04/25 06:00 03/07/25 06:16 40 MG Metoprolol Tartrate 25 mg BID PO 03/03/25 22:00 03/07/25 08:52 25 MG Hydralazine HCl 10 mg Q6HP PRN IV 03/06/25 12:45 Laboratory Results Laboratory Tests 03/04/25 04:46 03/07/25 11:42 Chemistry Test 03/07/25 11:42 03/07/25 11:45 Calcium Level 9.7 mg/dL (8.7-10.4) Magnesium Level 2.3 mg/dL (1.6-2.6) Phosphorus Level 5.7 mg/dL (2.4-5.1) H Cardiac Markers Test 03/07/25 11:45 B-Type Natriuretic Peptide 48.79 pg/mL (0-100) Urinalysis Test 03/03/25 12:16 Urine Color Light-yellow (Yellow) Urine Clarity Clear (Clear) Urine pH 5.0 (5.0-9.0) Urine Specific [place] 1.015 (1.001-1.035) Urine Protein Negative (Negative) Urine Ketones Negative (Negative) Urine Blood Negative /uL (Negative) Urine Nitrite Negative (Negative) Urine Bilirubin Negative (Negative) Urine Urobilinogen Normal mg/dL (Negative) Urine Leukocyte Esterase Negative /uL (Negative) Urine RBC 1 /hpf (0 - 4) Urine Microscopic WBC 1 /HPF (0-5) Urine Squamous Epithelial Cells Few /hpf (<5) Urine Bacteria Few /hpf (None Seen) H Urine Glucose 1+ mg/dL (Normal) H Assessment/Plan Assessment/Plan 79-year-old female with a known history of hypertension, paroxysmal AFib, peripheral neuropathy presented to the hospital with the shortness of breaths found to have 1. Acute on chronic congestive heart failure exacerbation likely diastolic dysfunction 2. Hypertension 3. Paroxysmal AFib 4. Shortness of breaths secondary to 1. -resume home medication -plan of care discussed with the patient. 12/ Creat higher to 2.6 holding lasix nephrology consulted Plan discussed with: Patient Date of Service: Mar 07, 2025 Billing Provider: ERVIN SAUCEDO MD Common Visit Codes: [id number] INP/OBS CARE(HIGH) ERVIN SAUCEDO MD Mar 07, 2025 17:35
[2025-03-07 17:54] LABS: Protein, Urine 7.7 mg/dL (1-14)
[2025-03-07 17:57] LABS: Urine Protein, UAD Negative (Negative)
[2025-03-08 01:00] VITALS: BP 112/59; PULSE 60; RESP 17; TEMP 97.8; O2SAT 96
[2025-03-08 05:00] VITALS: BP 136/71; PULSE 66; RESP 17; TEMP 98; O2SAT 95
[2025-03-08 07:40] VITALS: RESP 19
[2025-03-08 08:00] VITALS: PULSE 58
[2025-03-08 09:00] VITALS: BP 121/71; PULSE 69; RESP 16; TEMP 97.6; O2SAT 95
[2025-03-08 10:28] LABS: Potassium 4.4 mmol/L (3.5-5.1); Sodium 136 mmol/L (136-145)
[2025-03-08 10:29] LABS: Anion Gap 11 (5-15); Calcium 9.8 mg/dL (8.7-10.4); Carbon Dioxide 28 mmol/L (20-31)
[2025-03-08 10:30] LABS: Chloride 97 mmol/L (98-107)
[2025-03-08 10:34] LABS: BUN/Creatinine Ratio 17.8 (10.0-20.0)
[2025-03-08 10:35] LABS: Blood Urea Nitrogen 45 mg/dL (9-23); Glucose 194 mg/dL (74-106)
--- NOTE | 2025-03-08 10:54 | DVHPN2 ---
Progress Note Date Seen: Mar 08, 2025 Medical Necessity Reason Pt with a Central, PICC or Fol: No Subjective Patient reports: No new complaints Other Systems: Patient seen and examined by myself today in follow-up Objective vital signs Vital Sign Date Time Temp Pulse Resp B/P (MAP) Pulse Ox O2 Delivery O2 Flow Rate FiO2 03/08/25 09:00 97.6 69 16 121/71 (88) 95 97.6 03/08/25 07:40 Room Air* 0 21 Total Intake and Output 03/07/25 03/07/25 03/08/25 15:00 23:00 07:00 Intake Total 250 ml Balance 250 ml medications Current Medications Medications Dose Ordered Sig/Og Route Start Time Stop Time Status Last Admin Dose Admin Nitroglycerin 0.4 mg Q5MINP PRN SL 03/03/25 12:30 Morphine Sulfate 2 mg Q30M PRN IV 03/03/25 12:30 Empaglifozin 10 mg DAILY PO 03/03/25 12:30 03/08/25 08:31 10 MG Apixaban 2.5 mg BID PO 03/03/25 22:00 03/08/25 08:31 2.5 MG Pantoprazole Sodium 40 mg DAILY@0600 PO 03/04/25 06:00 03/08/25 05:22 40 MG Metoprolol Tartrate 25 mg BID PO 03/03/25 22:00 03/08/25 08:31 25 MG Hydralazine HCl 10 mg Q6HP PRN IV 03/06/25 12:45 Examination: LUNGS:Normal, CVS:Normal, MSK:Normal laboratory and microbiology Laboratory Tests 03/08/25 09:38 03/04/25 04:46 Test 03/08/25 09:38 Range/Units Serum Glucose 194 H 74-106 mg/dL Problem List/Assessment/Plan Problem List/Assessment/Plan Acute kidney injury superimposed Chronic Kidney Disease stage 4 secondary hemodynamic mediated Acute respiratory failure, O2 supplement Chronic diastolic Congestive heart failure AFib Diabetes mellitus type 2 Hypertension Anemia of chronic kidney disease Hyperphosphatemia Secondary hyperparathyroidism Recommendations Kidney function stable Chronic Kidney Disease stage 4 No urine output charted Strict I&Os Renal diet Insulin sliding scale Blood pressure control Renvela 800 mg p.o. t.i.d. with meals Calcitriol 0.25 mcg q.day Kidney ultrasound reported earlier within normal limit Cardiology consult We will continue to follow Plan discussed with: Patient KENYA PANIAGUA MD Mar 08, 2025 10:54
[2025-03-08] MEDS: SEVELAMER 800 MG TAB PO SCH (11:43)
[2025-03-08] MEDS ORDERED: APIX2.5T PO (12:42)
[2025-03-08] MEDS ORDERED: SEVE800T7 PO (12:42)
[2025-03-08 13:00] VITALS: BP 126/68; PULSE 65; RESP 16; TEMP 97.6; O2SAT 99
--- NOTE | 2025-03-08 13:20 | DVHDS2 ---
Discharge Summary Date of Admission Mar 03, 2025 at 12:16 Date of Discharge: Mar 08, 2025 Labs/Diagnostic Data: Laboratory Results Test 03/08/25 09:38 03/07/25 17:20 03/07/25 16:15 03/07/25 11:45 Sodium Level 136 mmol/L (136-145) Potassium Level 4.4 mmol/L (3.5-5.1) Chloride Level 97 mmol/L (98-107) Carbon Dioxide Level 28 mmol/L (20-31) Anion Gap 11 (5-15) Blood Urea Nitrogen 45 mg/dL (9-23) Creatinine 2.53 mg/dL (0.550-1.02) Glomerular Filtration Rate Calc 19 mL/min (>90) BUN/Creatinine Ratio 17.8 (10.0-20.0) Serum Glucose 194 mg/dL (74-106) Calcium Level 9.8 mg/dL (8.7-10.4) Urine Color Colorless (Yellow) Urine Clarity Clear (Clear) Urine pH 6.5 (5.0-9.0) Urine Specific [place] 1.009 (1.001-1.035) Urine Protein Negative (Negative) Urine Ketones Negative (Negative) Urine Blood Negative /uL (Negative) Urine Nitrite Negative (Negative) Urine Bilirubin Negative (Negative) Urine Urobilinogen Normal mg/dL (Negative) Urine Leukocyte Esterase Negative /uL (Negative) Urine RBC 1 /hpf (0 - 4) Urine Microscopic WBC 1 /HPF (0-5) Urine Squamous Epithelial Cells Few /hpf (<5) Urine Bacteria None seen /hpf (None Seen) Urine Creatinine 55.43 mg/dL (30.0-125.0) Urine Protein/Creatinine Ratio 0.14 Urine Sodium 24 mmol/L (40-220) Urine Glucose 4+ mg/dL (Normal) Urine Total Protein 7.7 mg/dL (1-14) Vitamin D 25-Hydroxy 51.1 ng/mL (30.0-100) Phosphorus Level 5.7 mg/dL (2.4-5.1) Magnesium Level 2.3 mg/dL (1.6-2.6) B-Type Natriuretic Peptide 48.79 pg/mL (0-100) Parathyroid Hormone (Intact) 128.9 pg/mL (18.4-80.1) Test 03/04/25 04:46 03/03/25 13:02 03/03/25 10:45 White Blood Count 4.9 10^3/uL (4.4-10.8) Red Blood Count 3.60 10^6/uL (4.0-5.20) Hemoglobin 10.9 g/dL (12.2-16.2) Hematocrit 31.1 % (36.0-46.0) Mean Corpuscular Volume 86.5 fL (80.0-100.0) Mean Corpuscular Hemoglobin 30.4 pg (28.0-32.0) Mean Corpuscular Hemoglobin Concent 35.2 g/dL (32.0-36.0) Red Cell Distribution Width 13.8 % (11.8-14.3) Platelet Count 197 10^3/uL (140-450) Mean Platelet Volume 8.7 fL (6.9-10.8) Neutrophils (%) (Auto) 59.4 % (37.0-80.0) Lymphocytes (%) (Auto) 23.2 % (10.0-50.0) Monocytes (%) (Auto) 11.9 % (0.0-12.0) Eosinophils (%) (Auto) 4.7 % (0.0-7.0) Basophils (%) (Auto) 0.8 % (0.0-2.0) Neutrophils # (Auto) 2.9 10 ^3/uL (1.6-8.6) Lymphocytes # (Auto) 1.1 10 ^3/uL (0.4-5.4) Monocytes # (Auto) 0.6 10 ^3/uL (0-1.3) Eosinophils # (Auto) 0.2 10 ^3/uL (0-0.8) Basophils # (Auto) 0 10 ^3/uL (0-0.2) Nucleated Red Blood Cells 0.0 % Influenza Type A Antigen Negative (Negative) Influenza Type B Antigen Negative (Negative) SARS-CoV-2 Antigen (Rapid) Negative (NEGATIVE) Reticulocyte Count (auto) 0.72 % (0.5-1.5) Total Bilirubin 0.5 mg/dL (0.2-1.0) Aspartate Amino Transferase (AST) 51 U/L (13-40) Alanine Aminotransferase (ALT) 53 U/L (7-40) Alkaline Phosphatase 113 U/L (46-116) Troponin I High Sensitivity 12 ng/L (</=34) Total Protein 7.5 g/dL (5.7-8.2) Albumin 4.6 g/dL (3.2-4.8) Other Laboratory Tests 03/08/25 09:38 03/04/25 04:46 Brief Hx & Hospital Course: 79-year-old female with a medical history of hypertension, atrial fibrillation, peripheral neuropathy, hyperlipidemia, CKD, diabetes presented to the ED with a chief complaint of shortness of breath since yesterday. Patient reported that she started to have shortness of breath at night yesterday which worsened on lying down and she had to sleep sitting up all night and also reported to have wheezing. She continued to have shortness of breaths in the morning and came to the hospital for further evaluation. Patient denied any cough, fever, phlegm, recent sick contacts. She also denied having any chest pain reported she had shortness of breath felt pressure-like sensation. She also has bilateral lower extremity swelling. On arrival to the ER chest x-ray showed diffuse interstitial opacities likely pulmonary edema. During hospital diuresed with rajani Transthoracic echocardiogram revealed (02/21/2025) an LVEF of 55% with grade 2 diastolic dysfunction, RV enlarged. Biatrial enlargement moderate. [id number] AI. Moderate pulmonic regurgitation. Moderate MAC. Mild to moderate tricuspid regurgitatio Creat slightly high but started trending down Condition at Discharge: Good Final Diagnosis/Problems List DOT due to vasomotor instability CKD stage 4 Acute systolic HF exacerbation Discharge Disposition: Home Discharge Instruct/Medications Diet: Cardiac 2g Na,low cholest Activity: No Restrictions, As Tolerated Follow Up/Referral: PCPin 7 days Medications: same home medications Scheduled Amiodarone Hcl (Amiodarone Hcl), 200 MG PO BID Amlodipine Besylate (Amlodipine Besylate), 1 TAB PO DAILY, (Reported) Amlodipine Besylate (Amlodipine Besylate), 10 MG PO DAILY Apixaban Base (Eliquis), 2.5 MG PO BID Ascorbic Acid (Vitamin C Tablet), 1 TAB PO DAILY, (Reported) Aspirin (Aspir-81), 1 TAB PO DAILY, (Reported) Atorvastatin Calcium (Atorvastatin Calcium), 1 TAB PO DAILY, (Reported) Cholecalciferol (Gnp Vitamin D), 5,000 UNIT PO DAILY, (Reported) Empagliflozin (Jardiance), 10 MG PO DAILY Glipizide (Glipizide), 2 TAB PO DAILY, (Reported) Hydralazine HCl (Hydralazine Hydrochloride), 10 MG PO Q8HR Isosorbide Dinitrate (Isosorbide Dinitrate), 5 MG PO TID Latanoprost (Latanoprost), 1 DROP EACHEYE QPM, (Reported) Losartan Potassium (Losartan Potassium), 100 MG PO DAILY, (Reported) Metoprolol Succinate (Metoprolol Succinate Er), 100 MG PO BID Multiple Vitamin (Multivitamins), 1 TAB PO DAILY, (Reported) Sevelamer Hydrochloride (Renagel), 800 MG PO TIDWM Tamsulosin Hcl (Tamsulosin Hcl), 0.4 MG PO QPM, (Reported) Timolol Maleate (Timolol Maleate Ophthalmi), 1 DROP EACHEYE QAM, (Reported) Scheduled PRN Senna (Senokot), 2 TAB PO DAILY PRN for FOR CONSTIPATION, (Reported) Trazodone Hcl (Trazodone Hcl), 1 TAB PO HSPRN PRN, (Reported) Discharge Statement: "Patient was advised to return to the ER or call 911 if any headaches, dizziness, shortness of breath, chest pain, abdominal pain, bleeding, fevers, or worsening of medical condition. Patient was counseled about treatment plan, medications, possible side effects, patientverbalized understanding. All questions were answered to the best of my ability. This discharge took greater then 30 minutes in planning, reviewing documentation, counseling the patient, and discussing with other team members." ASSESSMENT ASSESSMENT Assessment DOT due to vasomotor instability CKD stage 4 Acute systolic HF exacerbation Date of Service: Mar 08, 2025 Billing Provider: ERVIN SAUCEDO MD Common Visit Codes: [id number] DISCH DAY >30min ERVIN SAUCEDO MD Mar 08, 2025 13:20
[2025-03-09] MEDS ORDERED: CALCITRIOL 0.25 MCG CAP PO SCH (10:00)
== END 2025-03-08 15:55 | disposition home or self-care (01) | DRG 291 ==
LOC: ER 09:03 → OVERFLOW 12:16 → TELE-WESTW 15:04
PROVIDERS: ADMIT Hospitalist; ATTEND Hospitalist
DX: I13.0 Hypertensive heart and chronic kidney disease with heart failure and stage 1 through stage 4 chronic kidney disease, or unspecified chronic kidney disease (principal); I50.23 Acute on chronic systolic (congestive) heart failure; J96.00 Acute respiratory failure, unspecified whether with hypoxia or hypercapnia; N17.0 Acute kidney failure with tubular necrosis; N18.4 Chronic kidney disease, stage 4 (severe); N25.81 Secondary hyperparathyroidism of renal origin; D63.1 Anemia in chronic kidney disease; E83.39 Other disorders of phosphorus metabolism; E11.22 Type 2 diabetes mellitus with diabetic chronic kidney disease; I37.1 Nonrheumatic pulmonary valve insufficiency; I48.0 Paroxysmal atrial fibrillation; E78.5 Hyperlipidemia, unspecified; E11.42 Type 2 diabetes mellitus with diabetic polyneuropathy; I07.1 Rheumatic tricuspid insufficiency; Z90.710 Acquired absence of both cervix and uterus; Z96.641 Presence of right artificial hip joint; Z82.5 Family history of asthma and other chronic lower respiratory diseases; Z79.84 Long term (current) use of oral hypoglycemic drugs; Z79.899 Other long term (current) drug therapy
CPT/HCPCS: 36415; 71045; 80048; 80053; 81001; 82306; 82570; 83735; 83880; 83970; 84100; 84156; 84300; 84484; 85025; 85045; 87426; 87804; 93005; 96374; 99291; 99292; G0378